=== PATIENT | female | born 2000 | race Caucasian/White ===

== ENCOUNTER 2020-12-18 19:23 | Inpatient (IN) ==
[2020-12-18 19:53] LABS: Basophils # (auto) 0.01 K/uL (0-0.2); Basophils % (auto) 0.1 %; Eosinophils # (auto) 0.36 K/uL (0-0.5); Hematocrit (blood only) 40.5 % (37-47); Hemoglobin 14.1 g/dL (12.0-16.0); Immature Granulocytes # (auto) 0.05 K/uL (0.00-0.02); Immature Granulocytes % (auto) 0.4 %; Lymphocytes # (auto) 3.41 K/uL (1.2-3.4); Lymphocytes % (auto) 28.1 %; Mean Corpuscular Hemoglobin 31.8 pg (25-34); Mean Corpuscular Hgb Conc 34.8 g/dL (32-36); Mean Corpuscular Volume 91.2 fL (80-100); Mean Platelet Volume 9.2 fL (7.4-10.4); Monocytes # (auto) 0.95 K/uL (0.11-0.59); Monocytes % (auto) 7.8 %; Neutrophils # (auto) 7.37 K/uL (1.4-6.5); Neutrophils % (auto) 60.6 %; Platelet Count 373 K/uL (130-400); RDW Coefficient of Variation 12.6 % (11.5-14.5); RDW Standard Deviation 42.3 fL (36.4-46.3); Red Blood Count 4.44 M/uL (4.2-5.4); White Blood Count 12.15 K/uL (4.8-10.8)
[2020-12-18 20:10] LABS: Appearance Urine Clear (Clear); Bilirubin Urine Negative (Negative); Blood Urine Negative (Negative); Color Urine Yellow; Glucose Urine UA Negative (Negative); Ketones Urine Negative (Negative); Leukocyte Esterase Urine Negative (Negative); Nitrite Urine Negative (Negative); Protein Urine Negative (Negative); Specific Gravity Urine 1.009 (1.000-1.030); Urobilinogen Urine Negative (Negative); pH Urine 7.5 (4.5-7.5)
[2020-12-18 20:11] LABS: Pregnancy Test, Urine Negative (Negative)
[2020-12-18 20:12] LABS: BUN Creatinine Ratio 13.7 (10-20); Creatinine Clr Calc Pharmacy 135.9 ml/min; Est GFR (African American) 109.6; Est GFR (Non-African American) 94.6; Potassium 3.5 mmol/L (3.5-5.1)
[2020-12-18 20:22] LABS: Albumin Globulin Ratio 1.3 (0.9-2); Bilirubin,Total 0.3 mg/dl (0.2-1); Globulin 3.2 gm/dl (2.5-4.0); Thyroid Stimulating Hormone 0.855 uIu/ml (0.300-4.500); Total Protein 7.2 gm/dl (6.4-8.2)
[2020-12-18 20:30] LABS: Amphetamines+Metham, Urine Neg (Neg); Barbiturates, Urine Neg (Neg); Benzodiazepine, Urine Neg (Neg); Cocaine, Urine Neg (Neg); MDMA (Ecstacy), Urine Neg (Neg); Methadone, Urine Neg (Neg); Opiate, Urine Neg (Neg); Phencyclidine, Urine Neg (Neg)
[2020-12-18 20:40] LABS: Acetaminophen < 2 ug/ml (10-30)
[2020-12-18 20:41] LABS: Salicylate < 1.7 mg/dl (2.8-20)
[2020-12-18 20:52] LABS: Influenza A virus by PCR Negative (Neg); Influenza B virus by PCR Negative (Neg); RSV by PCR Negative (Neg); SARS CoV2 RNA(COVID-19) InHosp NEGATIVE (Negative)
[2020-12-18] MEDS ORDERED: hydrOXYzine HCl 25 MG TAB PO STA (21:28)
--- NOTE | 2020-12-18 21:32 | Emergency Department Note ---
History of Present Illness General Chief complaint: Mental Health Evaluation Stated complaint: SUICIDAL THOUGHTS Time Seen by Provider: 12/18/20 19:29 Source: patient Mode of arrival: ambulatory Limitations: no limitations History of Present Illness Provider complaint: depression, suicidal ideation Onset (ago): month(s) (Depression, sleeping) This pt is a 20 yo female who presents to the ED with c/o depression x several months with thoughts of self-harm and suicide. She states this has been present actually for many years, but during COVID the symptoms have ramped up. She has been apathetic to schoolwork and sleeping many hours. She was smoking marijuana last semester and now has transitioned to "medical marijuana" and vaping mostly. She occasionally will drink ETOH, about every 3 weeks. Pt is engaged to her female partner with whom she lives. She states she has not harmed herself because she would not want her fiance to see that. She denies "making plans" but states she has contemplated "drowning" herself and "overdosing" in an attempt to commit suicide. Home Medications Medication Instructions Recorded Confirmed Type No Known Home Medications 12/18/20 12/18/20 History Allergies Allergy/AdvReac Type Severity Reaction Status Date / Time No Known Allergies Allergy Unverified 12/18/20 19:39 Past Med/Surg History Medical History (Updated 12/18/20 @ 21:44 by Camelia Perez MD) Marijuana abuse Obesity (BMI 35.0-39.9 without comorbidity) Social History (Updated 12/18/20 @ 21:40 by Camelia Perez MD) Smoking Status: Current every day smoker Tobacco Type: E-cigarettes / Vaping marital status: Life Partner Current Living Situation: Significant Other current occupational status: student Feels Safe at Home: Yes Review of Systems See HPI for pertinent positives & negatives. and A total of 10 systems reviewed and were otherwise negative Physical Exam Vital Signs Vital Signs - 24 hr 12/18/20 19:25 12/18/20 21:20 Temperature 36.7 C Temperature Source Oral Pulse Rate 108 H Pulse Rate [Finger] 80 Respiratory Rate 18 18 Respiratory Effort / Characteristics Non-Labored Respiratory Depth Normal Respiratory Pattern Regular Blood Pressure [Left Arm] 135/78 Blood Pressure Mean [Left Arm] 97 Blood Pressure Position [Left Arm] Sitting Pulse Oximetry 99 98 Oxygen Delivery Method Room Air Room Air Sepsis Recent Fever Within 48 Hours No Sepsis New/Unexplained Change in Mental Status No Sepsis Action Taken by Nursing No Action Required Vital signs reviewed. General: Well-appearing 20 yo female, in no significant distress. HEENT: No scleral icterus, PERRLA, neck supple. Atraumatic. Cardiovascular: Regular rate and rhythm, no extra sounds. Pulmonary: Clear to auscultation bilaterally, normal work of breathing. Abdomen: Soft, obese, nontender, nondistended, positive bowel sounds. Musculoskeletal: Atraumatic, no peripheral edema. Neurologic: Patient awake alert and oriented x 3 Psych: Negative HI, Positive SI w plan Skin: Warm, dry, no rash Medical Decision Making Differential Diagnosis Mood disorder, infection, hypoglycemia, electrolyte abnormalities, cardiac sources, intracerebral event, toxicologic, trauma, neurologic, as well as other pathologies. Medical Records Attestation: I reviewed the patient's medical records. Home Medications Current Medication List: was personally reviewed by me Laboratory Data Attestation: I reviewed the patient's lab results. Result diagrams: 12/18/20 19:40 12/18/20 19:40 Lab Results 12/18/20 12/18/20 12/18/20 Range/Units 19:40 19:40 19:40 WBC 12.15 H (4.8-10.8) K/uL RBC 4.44 (4.2-5.4) M/uL Hgb 14.1 (12.0-16.0) g/dL Hct 40.5 (37-47) % MCV 91.2 (80-100) fL MCH 31.8 (25-34) pg MCHC 34.8 (32-36) g/dL RDW Std Deviation 42.3 (36.4-46.3) fL RDW Coeff of Rosa 12.6 (11.5-14.5) % Plt Count 373 (130-400) K/uL MPV 9.2 (7.4-10.4) fL Immature Gran % (Auto) 0.4 % Neut % (Auto) 60.6 % Lymph % (Auto) 28.1 % Faulkner % (Auto) 7.8 % Eos % (Auto) 3.0 % Baso % (Auto) 0.1 % Neut # (Auto) 7.37 H (1.4-6.5) K/uL Lymph # (Auto) 3.41 H (1.2-3.4) K/uL Faulkner # (Auto) 0.95 H (0.11-0.59) K/uL Eos # (Auto) 0.36 (0-0.5) K/uL Baso # (Auto) 0.01 (0-0.2) K/uL Immature Gran # (Auto) 0.05 H (0.00-0.02) K/uL Sodium 137 (136-145) mmol/L Potassium 3.5 (3.5-5.1) mmol/L Chloride 108 H (98-107) mmol/L Carbon Dioxide 26 (21-32) mmol/L Anion Gap 3.0 (3-11) BUN 12 (7-18) mg/dl Creatinine 0.88 (0.6-1.2) mg/dl Est Cr Clr Drug Dosing 135.9 ml/min Est GFR ( Amer) 109.6 Est GFR (Non-Af Amer) 94.6 BUN/Creatinine Ratio 13.7 (10-20) Glucose 91 (70-99) mg/dl Calcium 9.0 (8.5-10.1) mg/dl Total Bilirubin 0.3 (0.2-1) mg/dl AST 10 L (15-37) U/L ALT 20 (12-78) U/L Alkaline Phosphatase 53 (45-117) U/L Total Protein 7.2 (6.4-8.2) gm/dl Albumin 4.0 (3.4-5.0) gm/dl Globulin 3.2 (2.5-4.0) gm/dl Albumin/Globulin Ratio 1.3 (0.9-2) TSH 0.855 (0.300-4.500) uIu/ml Urine Color Urine Appearance (Clear) Urine pH (4.5-7.5) Ur Specific Bardolph (1.000-1.030) Urine Protein (Negative) Urine Glucose (UA) (Negative) Urine Ketones (Negative) Urine Blood (Negative) Urine Nitrite (Negative) Urine Bilirubin (Negative) Urine Urobilinogen (Negative) Ur Leukocyte Esterase (Negative) Urine Test (Negative) Salicylates < 1.7 L (2.8-20) mg/dl Urine Opiates Screen (Neg) Ur Methadone, Qual (Neg) Acetaminophen < 2 L (10-30) ug/ml Urine Barbiturates (Neg) Ur Phencyclidine (PCP) (Neg) U Amphetamin/Meth Scrn (Neg) MDMA (Ecstasy) Screen (Neg) U Benzodiazepines Scrn (Neg) Ur Cocaine Metabolite (Neg) U Marijuana (THC) Screen (Neg) Ethyl Alcohol mg/dL (0-3) mg/dl COVID-19 Eval Order SARS-CoV-2 (PCR) (Negative) Influenza Type A (PCR) (Neg) Influenza Type B (PCR) (Neg) RSV (RT-PCR) (Neg) 12/18/20 12/18/20 12/18/20 Range/Units 19:40 19:55 19:55 WBC (4.8-10.8) K/uL RBC (4.2-5.4) M/uL Hgb (12.0-16.0) g/dL Hct (37-47) % MCV (80-100) fL MCH (25-34) pg MCHC (32-36) g/dL RDW Std Deviation (36.4-46.3) fL RDW Coeff of Rosa (11.5-14.5) % Plt Count (130-400) K/uL MPV (7.4-10.4) fL Immature Gran % (Auto) % Neut % (Auto) % Lymph % (Auto) % Faulkner % (Auto) % Eos % (Auto) % Baso % (Auto) % Neut # (Auto) (1.4-6.5) K/uL Lymph # (Auto) (1.2-3.4) K/uL Faulkner # (Auto) (0.11-0.59) K/uL Eos # (Auto) (0-0.5) K/uL Baso # (Auto) (0-0.2) K/uL Immature Gran # (Auto) (0.00-0.02) K/uL Sodium (136-145) mmol/L Potassium (3.5-5.1) mmol/L Chloride (98-107) mmol/L Carbon Dioxide (21-32) mmol/L Anion Gap (3-11) BUN (7-18) mg/dl Creatinine (0.6-1.2) mg/dl Est Cr Clr Drug Dosing ml/min Est GFR ( Amer) Est GFR (Non-Af Amer) BUN/Creatinine Ratio (10-20) Glucose (70-99) mg/dl Calcium (8.5-10.1) mg/dl Total Bilirubin (0.2-1) mg/dl AST (15-37) U/L ALT (12-78) U/L Alkaline Phosphatase (45-117) U/L Total Protein (6.4-8.2) gm/dl Albumin (3.4-5.0) gm/dl Globulin (2.5-4.0) gm/dl Albumin/Globulin Ratio (0.9-2) TSH (0.300-4.500) uIu/ml Urine Color Urine Appearance (Clear) Urine pH (4.5-7.5) Ur Specific Bardolph (1.000-1.030) Urine Protein (Negative) Urine Glucose (UA) (Negative) Urine Ketones (Negative) Urine Blood (Negative) Urine Nitrite (Negative) Urine Bilirubin (Negative) Urine Urobilinogen (Negative) Ur Leukocyte Esterase (Negative) Urine Test (Negative) Salicylates (2.8-20) mg/dl Urine Opiates Screen (Neg) Ur Methadone, Qual (Neg) Acetaminophen (10-30) ug/ml Urine Barbiturates (Neg) Ur Phencyclidine (PCP) (Neg) U Amphetamin/Meth Scrn (Neg) MDMA (Ecstasy) Screen (Neg) U Benzodiazepines Scrn (Neg) Ur Cocaine Metabolite (Neg) U Marijuana (THC) Screen (Neg) Ethyl Alcohol mg/dL < 3.0 (0-3) mg/dl COVID-19 Eval Order [facility]sv at [facility] SARS-CoV-2 (PCR) NEGATIVE (Negative) Influenza Type A (PCR) Negative (Neg) Influenza Type B (PCR) Negative (Neg) RSV (RT-PCR) Negative (Neg) 12/18/20 12/18/20 12/18/20 Range/Units 20:00 20:00 20:00 WBC (4.8-10.8) K/uL RBC (4.2-5.4) M/uL Hgb (12.0-16.0) g/dL Hct (37-47) % MCV (80-100) fL MCH (25-34) pg MCHC (32-36) g/dL RDW Std Deviation (36.4-46.3) fL RDW Coeff of Rosa (11.5-14.5) % Plt Count (130-400) K/uL MPV (7.4-10.4) fL Immature Gran % (Auto) % Neut % (Auto) % Lymph % (Auto) % Faulkner % (Auto) % Eos % (Auto) % Baso % (Auto) % Neut # (Auto) (1.4-6.5) K/uL Lymph # (Auto) (1.2-3.4) K/uL Faulkner # (Auto) (0.11-0.59) K/uL Eos # (Auto) (0-0.5) K/uL Baso # (Auto) (0-0.2) K/uL Immature Gran # (Auto) (0.00-0.02) K/uL Sodium (136-145) mmol/L Potassium (3.5-5.1) mmol/L Chloride (98-107) mmol/L Carbon Dioxide (21-32) mmol/L Anion Gap (3-11) BUN (7-18) mg/dl Creatinine (0.6-1.2) mg/dl Est Cr Clr Drug Dosing ml/min Est GFR ( Amer) Est GFR (Non-Af Amer) BUN/Creatinine Ratio (10-20) Glucose (70-99) mg/dl Calcium (8.5-10.1) mg/dl Total Bilirubin (0.2-1) mg/dl AST (15-37) U/L ALT (12-78) U/L Alkaline Phosphatase (45-117) U/L Total Protein (6.4-8.2) gm/dl Albumin (3.4-5.0) gm/dl Globulin (2.5-4.0) gm/dl Albumin/Globulin Ratio (0.9-2) TSH (0.300-4.500) uIu/ml Urine Color Yellow Urine Appearance Clear (Clear) Urine pH 7.5 (4.5-7.5) Ur Specific Bardolph 1.009 (1.000-1.030) Urine Protein Negative (Negative) Urine Glucose (UA) Negative (Negative) Urine Ketones Negative (Negative) Urine Blood Negative (Negative) Urine Nitrite Negative (Negative) Urine Bilirubin Negative (Negative) Urine Urobilinogen Negative (Negative) Ur Leukocyte Esterase Negative (Negative) Urine Test Negative (Negative) Salicylates (2.8-20) mg/dl Urine Opiates Screen Neg (Neg) Ur Methadone, Qual Neg (Neg) Acetaminophen (10-30) ug/ml Urine Barbiturates Neg (Neg) Ur Phencyclidine (PCP) Neg (Neg) U Amphetamin/Meth Scrn Neg (Neg) MDMA (Ecstasy) Screen Neg (Neg) U Benzodiazepines Scrn Neg (Neg) Ur Cocaine Metabolite Neg (Neg) U Marijuana (THC) Screen Pos H (Neg) Ethyl Alcohol mg/dL (0-3) mg/dl COVID-19 Eval Order SARS-CoV-2 (PCR) (Negative) Influenza Type A (PCR) (Neg) Influenza Type B (PCR) (Neg) RSV (RT-PCR) (Neg) MDM Narrative This pt was evaluated and appeared to be in no distress. Pt was medically cleared and referred to the case technician. Pt was referred to for inpatient psychiatric care on a voluntary basis and accepted. Impression & Plan Suicidal ideation, Marijuana abuse, Depression Discharge Plan Visit Data Chief Complaint: Mental Health Evaluation Stated Complaint: SUICIDAL THOUGHTS ED Provider: Camelia Perez Discharge Problem: Suicidal ideation, Marijuana abuse, Depression Forms Stand Alone Forms: [facility], Suicide Prevention Resources Prescriptions Prescriptions: No Action No Known Home Medications RF: 0 Discharge Problem: Depression Qualifiers: Depression Type: unspecified Qualified Code(s): F32.9 - Major depressive disorder, single episode, unspecified
[2020-12-18] MEDS ORDERED: BISMUTH SUBSALICYLATE LIQD 236 ML PO PRN (22:30)
[2020-12-18] MEDS ORDERED: SODIUM CHLORIDE 0.65% NA SOLN 45 ML (OCEAN) PRN (22:30)
[2020-12-18] MEDS ORDERED: MAGNESIUM HYDROXIDE SUSP 30 ML UDC PO PRN (22:30)
[2020-12-18] MEDS ORDERED: ALUMINUM/MAGNESIUM SUSP 30 ML UDC PO PRN (22:30)
[2020-12-18] MEDS ORDERED: ACETAMINOPHEN 325 MG TAB PO PRN (22:30)
[2020-12-18] MEDS ORDERED: hydrOXYzine HCl 25 MG TAB PO PRN (22:30)
--- NOTE | 2020-12-19 09:33 | History & Physical ---
Date of Service December 19, 2020 Impression / Recommendations Impression 20 yo female with history of anxiety and depression, presented to ED with SI with plan in the context of escalating stress of school and with wedding planning. (1) Depression: The patient was admitted to the [facility] ([facility] mental health unit) on q15 min checks (behavioral with suicide precautions) for safety. The patient will participate in group, recreational, and milieu therapies and will be offered additional individual and family sessions as clinically appropriate. Risks/benefits/alternatives reviewed re: antidepressants for the treatment of depression and/or anxiety. Discussion included but was not limited to FDA warnings re: suicidality in adolescents and young adults. The patient wants to avoid antidepressant given past experience. Depression Type: unspecified Qualified Code(s): F32.9 - Major depressive disorder, single episode, unspecified (2) Social anxiety disorder: with performance anxiety component. She agreed to a trial of Buspar 5 mg po BID to start (am and afternoon). Discussion included but was not limited to risks/benefits/alternative treatments. 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 Chief Complaint "a lot of stress has been building up". History of Present Illness Anjali reports several year history of primarily anxiety, can generally cope until "COVID happened", now harder to motivate self to complete coursework and attend in person classes. She has a harder time being around people and reports some avoidance of tasks and anxiety about presenting in music composition classes. "Will I have enough?", "Will it be good enough?". The stress causes her to oversleep and overeat. She is engaged and looking forward to wedding in April, but complicated as her extended family do not approve of beltre weddings (partner is female) and have even banned a cousin from taking part in the wedding democrat, even going as far as to remove financial support for college. Mother is supportive though and in fact the couple lived with her when COVID hit. The patient has had thoughts to harm self or cut before but hasn't acted on the latter for some time. Thoughts in past 2 weeks have been more persistent and include thoughts to OD or drown self. The patient doesn't have access to any prescription medications. She added that trigger was her professor and advisor told her she couldn't catch up and her perception was there would be no accommodations. She denies any history of manic symptoms and any MJ use is significantly decreased from previously. She will drink socially and that is main reason she stopped Zoloft trial January 2020 after less than 1 month as she drank and had a negative reaction (intensified ETOH) and "not going to do that again". She is more interested in medication for anxiety and possible evaluation for ADHD. She has anxiety about work completion that makes it hard to focus but is concerned as multiple family members have been dx or tested and wonders if she may have it. Reviewed importance of treating anxiety and depression first, exploring school accommodations, and any testing would be as outpatient. Past Psychiatric History Current Psychiatric Diagnosis: Anxiety Previous Psych Admissions: denied Do You Have Access To A Gun?: No History of Previous Suicide Attempt: No Past Medication Trials: Zoloft Allergies Allergy/AdvReac Type Severity Reaction Status Date / Time No Known Allergies Allergy Unverified 12/18/20 19:39 Home Medications Medication Instructions Recorded Confirmed Type No Known Home Medications 12/18/20 12/18/20 History Family History Family History of: Anxiety Family Mental Health History Comment: ADHD - reports family is hinduism and doesn't believe in taking medications Alcohol History Hx of Alcohol Use Over the Past 12 Months: Yes (Occasional 1x/month) AUDIT Total Score: 3 Smoking Use Have You Smoked or Used Tobacco Products in the Last 30 Days: Yes tobacco type: cigarettes Smoking Status: Current every day smoker Smoking packs per day: 0.5 Substance History Hx of Prescription Med Misuse Over the Past 12 Months: No Hx of Over the Counter Med Misuse Over the Past 12 Months: No Hx of Inhalent Misuse Over the Past 12 Months: No Hx of Organic Substance Use Over the Past 12 Months: Yes (medical marijuana - occasionally, mainly CBD) Hx of Illegal Substances/Street Drug Use Over Past 12 Months: No Problems as a Result of Past Substance Use: Other Problems as a Result of Past Substance Use Comments: Pt felt medical marijuana use was hindering her motivation Personal History Living Arrangements: Apartment Living Arrangements Comments: with miguel (female) Childhood: [place], 2nd oldest of 4 kids Highest Grade Completed: High School Graduate and Some College (music composition, plays flute and piano) Employment Status: Student Marital Status: Single (engaged) Number Of Children: none Beliefs That Will Affect Care: None Current Legal Problems: No Hx Legal Problems: No Hx Traumatic Life Events: No Patient History Medical History Marijuana abuse Obesity (BMI 35.0-39.9 without comorbidity) Social History (Updated 12/18/20 @ 21:40 by Camelia Perez MD) Smoking Status: Current every day smoker Tobacco Type: E-cigarettes / Vaping Preferred Language: Swedish Communication Ability: Effective Agent Based Modeler Required: No Beliefs That Will Affect Care: None marital status: Life Partner Current Living Situation: Significant Other current occupational status: student Feels Safe at Home: Yes Assistive Devices: None Review of Systems Review of Systems: All systems reviewed & are unremarkable except as noted in HPI & below Physical Exam Psychiatric: Orientation: alert and oriented x 3 Apperance: appropriately groomed Eye Contact: + fair eye contact Motor Behavior: steady gait and station Speech: normal rate/rhythm/volume of speech Mood: + depressed mood Thought Process: goal directed thought process Thought Content: reality based without delusions Suicidal Thoughts: + reports suicidal thoughts (OD or drown self, no intent on unit. ) Homicidal Thoughts: denies homicidal thoughts Hallucinations: no auditory hallucinations and no visual hallucinations Cognition: attention grossly intact and language grossly intact Estimated Intelligence: consistent with education level Insight: + limited insight Judgement: + limited judgement Vital Signs (Past 24 Hours): Last Vital Signs Temp 37 C 12/18/20 22:31 Pulse 85 12/18/20 22:31 Resp 16 12/18/20 22:31 BP 119/78 12/18/20 22:31 Pulse Ox 99 12/18/20 22:31 Exam Statement: A physical exam was performed in the ED by Dr. Perez for the purposes of medical clearance. I accept that physical as correct and adequate for the purposes of the inpatient physical exam. Results & Data ([facility]) Laboratory Results Laboratory Results - last 24 hr 12/18/20 12/18/20 12/18/20 19:40 19:40 19:40 WBC 12.15 H RBC 4.44 Hgb 14.1 Hct 40.5 MCV 91.2 MCH 31.8 MCHC 34.8 RDW Std Deviation 42.3 RDW Coeff of Rosa 12.6 Plt Count 373 MPV 9.2 Immature Gran % (Auto) 0.4 Neut % (Auto) 60.6 Lymph % (Auto) 28.1 [place] % (Auto) 7.8 Eos % (Auto) 3.0 Baso % (Auto) 0.1 Neut # (Auto) 7.37 H Lymph # (Auto) 3.41 H [place] # (Auto) 0.95 H Eos # (Auto) 0.36 Baso # (Auto) 0.01 Immature Gran # (Auto) 0.05 H Sodium 137 Potassium 3.5 Chloride 108 H Carbon Dioxide 26 Anion Gap 3.0 BUN 12 Creatinine 0.88 Est Cr Clr Drug Dosing 135.9 Est GFR ( Amer) 109.6 Est GFR (Non-Af Amer) 94.6 BUN/Creatinine Ratio 13.7 Glucose 91 Calcium 9.0 Total Bilirubin 0.3 AST 10 L ALT 20 Alkaline Phosphatase 53 Total Protein 7.2 Albumin 4.0 Globulin 3.2 Albumin/Globulin Ratio 1.3 TSH 0.855 Urine Color Urine Appearance Urine pH Ur Specific [place] Urine Protein Urine Glucose (UA) Urine Ketones Urine Blood Urine Nitrite Urine Bilirubin Urine Urobilinogen Ur Leukocyte Esterase Urine Test Salicylates < 1.7 L Urine Opiates Screen Ur Methadone, Qual Acetaminophen < 2 L Urine Barbiturates Ur Phencyclidine (PCP) U Amphetamin/Meth Scrn MDMA (Ecstasy) Screen U Benzodiazepines Scrn Ur Cocaine Metabolite U Marijuana (THC) Screen U Marijuana THC Carboxy Drug Screen Comment Ethyl Alcohol mg/dL COVID-19 Eval Order SARS-CoV-2 (PCR) Influenza Type A (PCR) Influenza Type B (PCR) RSV (RT-PCR) 12/18/20 12/18/20 12/18/20 19:40 19:55 19:55 WBC RBC Hgb Hct MCV MCH MCHC RDW Std Deviation RDW Coeff of Rosa Plt Count MPV Immature Gran % (Auto) Neut % (Auto) Lymph % (Auto) [place] % (Auto) Eos % (Auto) Baso % (Auto) Neut # (Auto) Lymph # (Auto) [place] # (Auto) Eos # (Auto) Baso # (Auto) Immature Gran # (Auto) Sodium Potassium Chloride Carbon Dioxide Anion Gap BUN Creatinine Est Cr Clr Drug Dosing Est GFR ( Amer) Est GFR (Non-Af Amer) BUN/Creatinine Ratio Glucose Calcium Total Bilirubin AST ALT Alkaline Phosphatase Total Protein Albumin Globulin Albumin/Globulin Ratio TSH Urine Color Urine Appearance Urine pH Ur Specific [place] Urine Protein Urine Glucose (UA) Urine Ketones Urine Blood Urine Nitrite Urine Bilirubin Urine Urobilinogen Ur Leukocyte Esterase Urine Test Salicylates Urine Opiates Screen Ur Methadone, Qual Acetaminophen Urine Barbiturates Ur Phencyclidine (PCP) U Amphetamin/Meth Scrn MDMA (Ecstasy) Screen U Benzodiazepines Scrn Ur Cocaine Metabolite U Marijuana (THC) Screen U Marijuana THC Carboxy Drug Screen Comment Ethyl Alcohol mg/dL < 3.0 COVID-19 Eval Order CovFluRsv at [facility] SARS-CoV-2 (PCR) NEGATIVE Influenza Type A (PCR) Negative Influenza Type B (PCR) Negative RSV (RT-PCR) Negative 12/18/20 12/18/20 12/18/20 20:00 20:00 20:00 WBC RBC Hgb Hct MCV MCH MCHC RDW Std Deviation RDW Coeff of Rosa Plt Count MPV Immature Gran % (Auto) Neut % (Auto) Lymph % (Auto) [place] % (Auto) Eos % (Auto) Baso % (Auto) Neut # (Auto) Lymph # (Auto) [place] # (Auto) Eos # (Auto) Baso # (Auto) Immature Gran # (Auto) Sodium Potassium Chloride Carbon Dioxide Anion Gap BUN Creatinine Est Cr Clr Drug Dosing Est GFR ( Amer) Est GFR (Non-Af Amer) BUN/Creatinine Ratio Glucose Calcium Total Bilirubin AST ALT Alkaline Phosphatase Total Protein Albumin Globulin Albumin/Globulin Ratio TSH Urine Color Yellow Urine Appearance Clear Urine pH 7.5 Ur Specific [place] 1.009 Urine Protein Negative Urine Glucose (UA) Negative Urine Ketones Negative Urine Blood Negative Urine Nitrite Negative Urine Bilirubin Negative Urine Urobilinogen Negative Ur Leukocyte Esterase Negative Urine Test Negative Salicylates Urine Opiates Screen Neg Ur Methadone, Qual Neg Acetaminophen Urine Barbiturates Neg Ur Phencyclidine (PCP) Neg U Amphetamin/Meth Scrn Neg MDMA (Ecstasy) Screen Neg U Benzodiazepines Scrn Neg Ur Cocaine Metabolite Neg U Marijuana (THC) Screen Pos H U Marijuana THC Carboxy Drug Screen Comment Ethyl Alcohol mg/dL COVID-19 Eval Order SARS-CoV-2 (PCR) Influenza Type A (PCR) Influenza Type B (PCR) RSV (RT-PCR) 12/18/20 20:00 WBC RBC Hgb Hct MCV MCH MCHC RDW Std Deviation RDW Coeff of Rosa Plt Count MPV Immature Gran % (Auto) Neut % (Auto) Lymph % (Auto) [place] % (Auto) Eos % (Auto) Baso % (Auto) Neut # (Auto) Lymph # (Auto) [place] # (Auto) Eos # (Auto) Baso # (Auto) Immature Gran # (Auto) Sodium Potassium Chloride Carbon Dioxide Anion Gap BUN Creatinine Est Cr Clr Drug Dosing Est GFR ( Amer) Est GFR (Non-Af Amer) BUN/Creatinine Ratio Glucose Calcium Total Bilirubin AST ALT Alkaline Phosphatase Total Protein Albumin Globulin Albumin/Globulin Ratio TSH Urine Color Urine Appearance Urine pH Ur Specific [place] Urine Protein Urine Glucose (UA) Urine Ketones Urine Blood Urine Nitrite Urine Bilirubin Urine Urobilinogen Ur Leukocyte Esterase Urine Test Salicylates Urine Opiates Screen Ur Methadone, Qual Acetaminophen Urine Barbiturates Ur Phencyclidine (PCP) U Amphetamin/Meth Scrn MDMA (Ecstasy) Screen U Benzodiazepines Scrn Ur Cocaine Metabolite U Marijuana (THC) Screen U Marijuana THC Carboxy Pending Drug Screen Comment Pending Ethyl Alcohol mg/dL COVID-19 Eval Order SARS-CoV-2 (PCR) Influenza Type A (PCR) Influenza Type B (PCR) RSV (RT-PCR) Current Inpatient Medications Current Inpatient Medications: Current Inpatient Medications Acetaminophen (Acetaminophen 325 Mg Tab) 650 mg PO Q4H PRN PRN Reason: Headache or Minor Fever Stop: 01/17/21 22:29 Al Hydrox/Mg Hydrox/Simethicone (Aluminum/Magnesium Susp 30 Ml Udc) 30 ml PO Q4H PRN PRN Reason: GI Upset Stop: 01/17/21 22:29 Bismuth Subsalicylate (Bismuth Subsalicylate Liqd 236 Ml) 15 ml PO PRN PRN PRN Reason: Loose Stool Stop: 01/17/21 22:29 Hydroxyzine HCl (Hydroxyzine Hcl 25 Mg Tab) 50 mg PO HSZ PRN PRN Reason: Insomnia Stop: 01/17/21 22:29 Hydroxyzine HCl (Hydroxyzine Hcl 25 Mg Tab) 25 mg PO Q4H PRN PRN Reason: Anxiety Stop: 01/17/21 22:29 Magnesium Hydroxide (Magnesium Hydroxide Susp 30 Ml Udc) 30 ml PO DAILY PRN PRN Reason: Constipation Stop: 01/17/21 22:29 Sodium Chloride (Sodium Chloride 0.65% Na Soln 45 Ml ([place])) 1 - 2 sprays NA PRN PRN PRN Reason: Nasal Dryness/Congestion Stop: 01/17/21 22:29
[2020-12-19] MEDS ORDERED: busPIRone 5 MG TAB PO ONE ×2 (11:18→19:00)
[2020-12-19] MEDS: NICOTINE POLACRILEX 2 MG GUM MT PRN (18:40)
[2020-12-19] MEDS: hydrOXYzine HCl 25 MG TAB PO PRN (21:17)
[2020-12-20] MEDS ORDERED: busPIRone 5 MG TAB PO SCH (09:00)
[2020-12-20] MEDS: NICOTINE POLACRILEX 2 MG GUM MT PRN (11:26)
--- NOTE | 2020-12-20 15:34 | Psychiatric Progress Note ---
Date of Service December 20, 2020 Impression / Recommendations Impression 20 yo female with history of anxiety and depression, presented to ED with SI with plan in the context of escalating stress of school and with wedding planning. Started on Buspar with some benefit. (1) Depression: 12/19--The patient was [facility] to the [facility] on q15 min checks (behavioral with suicide precautions) for safety. The patient will participate in group, recreational, and milieu therapies and will be offered additional individual and family sessions as clinically appropriate. Risks/benefits/alternatives reviewed re: antidepressants for the treatment of depression and/or anxiety. Discussion included but was not limited to FDA warnings re: suicidality in adolescents and young adults. The patient wants to avoid antidepressant given past experience. (2) Social anxiety disorder: 12/19--with performance anxiety component. She agreed to a trial of Buspar 5 mg po BID to start (am and afternoon). Discussion included but was not limited to risks/benefits/alternative treatments. 12/20--increase Buspar to 10 mg BID. 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 Chief Complaint "yeah I felt less tightness in my chest yesterday". Review of Systems Sleep Information Total Hours of Sleep: 6.5 Sleep Comments: pt given vistaril per rn. pt on q-15 minute checks Meal Information Percent Meal Consumed - Breakfast: 100 Percent Meal Consumed - Lunch: 75 Percent Meal Consumed - Dinner: 100 Subjective Subjective Patient was seen & assessed and interval progress reviewed with treatment team. meeting with miguel this pm. benefits from 1-on-1 with staff. Started Buspar, told staff resistance to antidepressant was sexual side effects. She adds that although not suicidal here, unsure how she will cope outside of hospital as nothing has changed with regards to her classes. Physical Exam Psychiatric Orientation: alert and oriented x 3 Apperance: appropriately groomed Eye Contact: + fair eye contact Motor Behavior: steady gait and station Speech: normal rate/rhythm/volume of speech Mood: + depressed mood Thought Process: goal directed thought process Thought Content: reality based without delusions Suicidal Thoughts: denies suicidal thoughts Homicidal Thoughts: denies homicidal thoughts Hallucinations: no auditory hallucinations and no visual hallucinations Cognition: attention grossly intact and language grossly intact Estimated Intelligence: consistent with education level Insight: + limited insight Judgement: + limited judgement Vital Signs (Past 24 Hours) Last Vital Signs Temp 36.7 C 12/20/20 06:34 Pulse 64 12/20/20 06:35 Resp 16 12/20/20 06:34 BP 116/63 12/20/20 06:35 Pulse Ox 99 12/18/20 22:31 Results & Data ([facility]) Current Inpatient Medications Current Inpatient Medications: Current Inpatient Medications Acetaminophen (Acetaminophen 325 Mg Tab) 650 mg PO Q4H PRN PRN Reason: Headache or Minor Fever Stop: 01/17/21 22:29 Al Hydrox/Mg Hydrox/Simethicone (Aluminum/Magnesium Susp 30 Ml Udc) 30 ml PO Q4H PRN PRN Reason: GI Upset Stop: 01/17/21 22:29 Bismuth Subsalicylate (Bismuth Subsalicylate Liqd 236 Ml) 15 ml PO PRN PRN PRN Reason: Loose Stool Stop: 01/17/21 22:29 Buspirone HCl (Buspirone 5 Mg Tab) 5 mg PO [id number] SILVANA Stop: 01/19/21 08:59 Last Admin: 12/20/20 08:36 Dose: 5 mg Documented by: Hydroxyzine HCl (Hydroxyzine Hcl 25 Mg Tab) 50 mg PO HSZ PRN PRN Reason: Insomnia Stop: 01/17/21 22:29 Last Admin: 12/19/20 21:17 Dose: 50 mg Documented by: Hydroxyzine HCl (Hydroxyzine Hcl 25 Mg Tab) 25 mg PO Q4H PRN PRN Reason: Anxiety Stop: 01/17/21 22:29 Magnesium Hydroxide (Magnesium Hydroxide Susp 30 Ml Udc) 30 ml PO DAILY PRN PRN Reason: Constipation Stop: 01/17/21 22:29 Nicotine Polacrilex (Nicotine Polacrilex 2 Mg Gum) 1 piece MT PRN PRN PRN Reason: nicotine cravings Stop: 01/18/21 17:59 Last Admin: 12/20/20 11:26 Dose: 1 piece Documented by: Sodium Chloride (Sodium Chloride 0.65% Na Soln 45 Ml ([place])) 1 - 2 sprays NA PRN PRN PRN Reason: Nasal Dryness/Congestion Stop: 01/17/21 22:29 Mental Health & Subst Abuse Tx Chief Nuclear Medicine Technologist Name of Chief Nuclear Medicine Technologist: Student Care [employer] Advocacy Phone Number for Chief Nuclear Medicine Technologist: [phone] Case Management Appointment Comment: Will call you Post Discharge Appointments Primary Care Physician Name Of Family Doctor: [facility] Primary Care Provider Appointment Comment: [facility] Contact Information Discharge Discharge Address: [address] [place] [address], [place] [address] (1) Depression Depression Type: unspecified Qualified Code(s): F32.9 - Major depressive disorder, single episode, unspecified
[2020-12-20] MEDS: busPIRone 5 MG TAB PO SCH (16:54)
[2020-12-20] MEDS: hydrOXYzine HCl 25 MG TAB PO PRN (22:49)
--- NOTE | 2020-12-21 09:03 | Psychiatric Progress Note ---
Date of Service December 21, 2020 Impression / Recommendations Impression 20 yo female with history of anxiety and depression, presented to ED with SI with plan in the context of escalating stress of school and with wedding planning. Started on Buspar with some benefit. (1) Depression: 12/19--The patient was admitted to the [facility] ([facility] unit) on q15 min checks (behavioral with suicide precautions) for safety. The patient will participate in group, recreational, and milieu therapies and will be offered additional individual and family sessions as clinically appropriate. Risks/benefits/alternatives reviewed re: antidepressants for the treatment of depression and/or anxiety. Discussion included but was not limited to FDA warnings re: suicidality in adolescents and young adults. The patient wants to avoid antidepressant given past experience. 12/21 - Continue as above - patient reporting improvement in mood, denying SI today. - Positive family meeting with miguel yesterday - Awaiting confirmed appointments through [facility] for outpatient psychiatric treatment - Pt referred for coordination with [employer] [facility] [employer] [facility] post-discharge to assist with communication with the university (2) Social anxiety disorder: 12/19--with performance anxiety component. She agreed to a trial of Buspar 5 mg po BID to start (am and afternoon). Discussion included but was not limited to risks/benefits/alternative treatments. 12/20--increase Buspar to 10 mg BID. 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 Chief Complaint "I think my medicine has really been helping." Review of Systems Notes Constitutional: denied Cardiovascular: denied Respiratory: denied Gastrointestinal: denied Neurological: denied Psychiatric: denies symptoms other than stated above Total of at least 10 systems reviewed, pertinent positives as above and in HPI. Sleep Information Total Hours of Sleep: 6.5 Sleep Comments: pt given vistaril per rn. pt on q-15 minute checks Meal Information Percent Meal Consumed - Breakfast: 100 Percent Meal Consumed - Lunch: 75 Percent Meal Consumed - Dinner: 95 Subjective Subjective Patient was seen & assessed and interval progress reviewed with nursing and social work. Staff report the patient has been attending group programming and responding well to treatment. She had a support meeting yesterday with her fijw, which reportedly went well. She rated her mood a 6/10 and "tired" last evening. Pt was seen today to assess progress since admission. Pt reports "I think my medicine has really been helping." Pt states she feels her anxiety and stress has been reduce and reports improvement in chest tightness. Pt states she has been focusing on being more aware of her thoughts, specifically the negative self-talk she had been experiencing. Pt states that prior to her admission her thoughts were generally 'you didn't do this well, it's ok, just kill yourself.' She now states that these thoughts are not occurring and she is learning to be more forgiving of herself. Pt also admits that she is taking more time to evaluate why she has particularly thoughts and where they may be stemming from. Pt denies SI and states that her mood has improved since admission. She reports her family meeting with her fijw was positive, and they worked to identify ways to expand the patient's support network. Pt reports feeling as though she is meeting her treatment goals. She was updated on [facility] referral and need for confirmed appointment times and was encouraged to begin working on her written safety plan, reaching out to staff for assistance. Pt denied other needs or concerns today. Physical Exam Psychiatric Orientation: alert, oriented x 3 and cooperative Apperance: appropriately dressed, appropriately groomed and appeared stated age Pt is casually dressed in a tie-dye sweater and sweat pants. Hair is an aqua blue/green color. Level of hygiene appears adequate. Eye Contact: good eye contact Motor Behavior: steady gait and station and no abnormal motor movements Speech: normal rate/rhythm/volume of speech Affect: + anxious affect (mildly so) Mood: + anxious mood (but admits "less anxious"); no depressed mood Thought Process: goal directed thought process, clear/coherent thought process and thought association intact Thought Content: reality based without delusions; no hopelessness and no worthlessness Suicidal Thoughts: denies suicidal thoughts and denies suicidal intent Homicidal Thoughts: denies homicidal thoughts Hallucinations: no auditory hallucinations and no visual hallucinations Cognition: recent memory grossly intact, attention grossly intact and language grossly intact Estimated Intelligence: consistent with education level Insight: + fair insight Judgement: + fair judgement Vital Signs (Past 24 Hours) Last Vital Signs Temp 36.6 C 12/21/20 06:44 Pulse 71 12/21/20 06:45 Resp 16 12/21/20 06:44 BP 115/80 12/21/20 06:45 Pulse Ox 99 12/18/20 22:31 Results & Data ([facility]) Current Inpatient Medications Current Inpatient Medications: Current Inpatient Medications Acetaminophen (Acetaminophen 325 Mg Tab) 650 mg PO Q4H PRN PRN Reason: Headache or Minor Fever Stop: 01/17/21 22:29 Al Hydrox/Mg Hydrox/Simethicone (Aluminum/Magnesium Susp 30 Ml Udc) 30 ml PO Q4H PRN PRN Reason: GI Upset Stop: 01/17/21 22:29 Bismuth Subsalicylate (Bismuth Subsalicylate Liqd 236 Ml) 15 ml PO PRN PRN PRN Reason: Loose Stool Stop: 01/17/21 22:29 Buspirone HCl (Buspirone 5 Mg Tab) 10 mg PO [id number] SILVANA Stop: 01/19/21 16:59 Last Admin: 12/20/20 16:54 Dose: 10 mg Documented by: Hydroxyzine HCl (Hydroxyzine Hcl 25 Mg Tab) 50 mg PO HSZ PRN PRN Reason: Insomnia Stop: 01/17/21 22:29 Last Admin: 12/20/20 22:49 Dose: 50 mg Documented by: Hydroxyzine HCl (Hydroxyzine Hcl 25 Mg Tab) 25 mg PO Q4H PRN PRN Reason: Anxiety Stop: 01/17/21 22:29 Magnesium Hydroxide (Magnesium Hydroxide Susp 30 Ml Udc) 30 ml PO DAILY PRN PRN Reason: Constipation Stop: 01/17/21 22:29 Nicotine Polacrilex (Nicotine Polacrilex 2 Mg Gum) 1 piece MT PRN PRN PRN Reason: nicotine cravings Stop: 01/18/21 17:59 Last Admin: 12/20/20 11:26 Dose: 1 piece Documented by: Sodium Chloride (Sodium Chloride 0.65% Na Soln 45 Ml ([place])) 1 - 2 sprays NA PRN PRN PRN Reason: Nasal Dryness/Congestion Stop: 01/17/21 22:29 Mental Health & Subst Abuse Tx Contin[employer] Of Care Manager Name of Continuum Of Care Manager: [employer] [facility] [employer] [facility] Phone Number for Contin[employer] Of Care Manager: [phone] Case Management Appointment Comment: Will call you Post Discharge Appointments Primary Care Physician Name Of Family Doctor: [facility] Primary Care Provider Appointment Comment: [facility] Other #1: Name of Aftercare Appointment: Potential ADHD Testing: [facility] Phone Number of Aftercare Appointment: Aftercare Appointment Comment: [address], [place] [address] Contact Information Discharge Discharge Address: [address], [facility], [place] [address] (1) Depression Depression Type: unspecified Qualified Code(s): F32.9 - Major depressive disorder, single episode, unspecified
[2020-12-21] MEDS: busPIRone 5 MG TAB PO SCH ×2 (09:10→17:21)
[2020-12-22 08:19] LABS: Marijuana Quant, GCMS Urine 133 ng/mL (<5)
[2020-12-22] MEDS: busPIRone 5 MG TAB PO SCH (09:04)
--- NOTE | 2020-12-22 10:41 | Discharge Summary ---
Date of Service December 22, 2020 History of Present Illness Antionette reports several year history of primarily anxiety, can generally cope until "COVID happened", now harder to motivate self to complete coursework and attend in person classes. She has a harder time being around people and reports some avoidance of tasks and anxiety about presenting in music composition classes. "Will I have enough?", "Will it be good enough?". The stress causes her to oversleep and overeat. She is engaged and looking forward to wedding in April, but complicated as her extended family do not approve of beltre weddings (partner is female) and have even banned a cousin from taking part in the wedding libertarian, even going as far as to remove financial support for college. Mother is supportive though and in fact the couple lived with her when COVID hit. The patient has had thoughts to harm self or cut before but hasn't acted on the latter for some time. Thoughts in past 2 weeks have been more persistent and include thoughts to OD or drown self. The patient doesn't have access to any prescription medications. She added that trigger was her professor and advisor told her she couldn't catch up and her perception was there would be no accommodations. She denies any history of manic symptoms and any MJ use is significantly decreased from previously. She will drink socially and that is main reason she stopped Zoloft trial January 2020 after less than 1 month as she drank and had a negative reaction (intensified ETOH) and "not going to do that again". She is more interested in medication for anxiety and possible evaluation for ADHD. She has anxiety about work completion that makes it hard to focus but is concerned as multiple family members have been dx or tested and wonders if she may have it. Reviewed importance of treating anxiety and depression first, exploring school accommodations, and any testing would be as outpatient. Physical Exam Psychiatric Orientation: alert, oriented x 3 and cooperative (and pleasant) Apperance: appropriately dressed, appropriately groomed and appeared stated age Eye Contact: good eye contact Motor Behavior: steady gait and station and no abnormal motor movements Speech: normal rate/rhythm/volume of speech Affect: euthymic affect Mood: no depressed mood and no anxious mood (aside from mild anticipatory anxiety regarding discharge) Thought Process: goal directed thought process, clear/coherent thought process and thought association intact Thought Content: reality based without delusions; no hopelessness and no worthlessness Suicidal Thoughts: denies suicidal thoughts, denies suicidal plan and denies suicidal intent Homicidal Thoughts: denies homicidal thoughts Hallucinations: no auditory hallucinations and no visual hallucinations Cognition: recent memory grossly intact, attention grossly intact and language grossly intact Estimated Intelligence: consistent with education level Insight: + fair insight Judgement: good judgement Vital Signs (Past 24 Hours) Last Vital Signs Temp 36.4 C L 12/22/20 06:50 Pulse 72 12/22/20 06:51 Resp 16 12/22/20 06:50 BP 111/72 12/22/20 06:51 Pulse Ox 99 12/18/20 22:31 Principal Diagnosis - Major depressive disorder - Social anxiety disorder - Marijuana abuse Psychiatric Data See "Hospital Course" section for Daily Care Summary 20-year-old female admitted voluntarily for inpatient psychiatric treatment on 12/18/20 after presenting to the ED with reports of worsening anxiety, depression, and SI in the context of increasing school stress and wedding planning. Pt states that she struggles with desire to achieve perfection. Pt also has been struggling with lack of support from her extended family regarding beltre wedding (her partner is female), which has been difficult. Pt declined to consider a trial of an SSRI, but did request medication that may target her anxiety. Buspirone was initiated and patient was titrated to a a dose of 10mg BID without issues. She involved her fiance in a support meeting to discuss safety and discharge planning. Pt had admitted to improvement in mood and resolution of SI by the time of discharge. She was an active participant in group programming and was supportive of her peers. Pt was referred to [facility] for outpatient psychiatric treatment - they will be contacting her directly to schedule an intake appointment, but all necessary information for the referral was faxed. Based on review of patient's case and their current presentation, risk of harm to self or others is no longer perceived to be acute. Management of symptoms on an outpatient basis seems the most appropriate and least restrictive setting. Pt seems appropriate for discharge with recommendation for consistent follow-up with outpatient psychiatric prescriber and therapist. Pt verbalized understanding of discharge plan reviewed and is agreeable with plan to be discharged home with her fiance today. Day of Discharge Assessment Patient's case was reviewed and discussed during treatment team. Staff report the patient continues to be engaged with group programming and is reporting improved mood. Pt rated her mood a 9/10 last evening and was hopeful for discharge today. Pt was seen today to assess readiness for discharge. Pt states she is doing well. She reports groups yesterday were very helpful, specifically a group on stress management as patient felt it helped her gain a lot of insight into her recent negative thought patterns and learn to challenge them. Pt denies ongoing SI and reports mood overall is much improved. Pt denies concerns related to her current medication regimen. Pt did agree to discharge later this afternoon, with hopes we will have a secured appointment time at [facility] - however, all information for this referral has been faxed and appointment could be scheduled with patient directly if necessary. Pt reports feeling as though she has met her treatment goals and is requesting discharge today. ROS: Constitutional: denied Cardiovascular: denied Respiratory: denied Gastrointestinal: denied Neurological: denied Psychiatric: denies symptoms other than stated above Total of at least 10 systems reviewed, pertinent positives as above and in HPI. Transition of Care Transition Of Care Record: was reviewed with the patient Advance Directives Advance Directives Information Provided: Yes Advance Directives: No Mental Health Advance Directive: No Advance Directives on File: No Living Will: No Power of Media Traffic Manager: No Advance Directives Reason:: Declines as Mental Health Visit. Risk Factors Assessment Presenting risk factors reviewed on discharge. Precipitating stressors mitigated by: admission for inpatient psychiatric observation and treatment, initiation of medications to target presenting symptoms, attendance of therapeutic treatment groups, development of healthy and effective coping strategies, involvement of outpatient supports, completion of a safety plan, confirmation of extra medications being secured, confirmation of guns and weapons being secured, discussion regarding substance abuse and effects on mental health diagnoses, and education on diagnoses. Pt has demonstrated improvement in condition with regard to improve mood, resolution of SI, involvement of supports in discharge planning, and referral for outpatient psychiatric treatment. At this time, patient is requesting discharge and is no longer considered to be at acute risk of harm to herself or others. Pt will be discharged with recommendation for ongoing outpatient psychiatric treatment. 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[employer], PT) Stable Relationships: Yes Tobacco Cessation at Discharge Tobacco Cessation Medication Prescribed at Discharge: Offered & Prescribed Tobacco Cessation Outpatient Followup: Outpatient referral made to ([facility]) Total Time Total Time Spent: Greater Than 30 Minutes Total Time Includes: Examination of the patient, Discharge Planning, Medication Reconciliation and Communication with other providers Discharge Data Lab Results 12/18/20 12/18/20 12/18/20 19:40 19:40 19:40 WBC 12.15 H RBC 4.44 Hgb 14.1 Hct 40.5 MCV 91.2 MCH 31.8 MCHC 34.8 RDW Std Deviation 42.3 RDW Coeff of Rosa 12.6 Plt Count 373 MPV 9.2 Immature Gran % (Auto) 0.4 Neut % (Auto) 60.6 Lymph % (Auto) 28.1 [place] % (Auto) 7.8 Eos % (Auto) 3.0 Baso % (Auto) 0.1 Neut # (Auto) 7.37 H Lymph # (Auto) 3.41 H [place] # (Auto) 0.95 H Eos # (Auto) 0.36 Baso # (Auto) 0.01 Immature Gran # (Auto) 0.05 H Sodium 137 Potassium 3.5 Chloride 108 H Carbon Dioxide 26 Anion Gap 3.0 BUN 12 Creatinine 0.88 Est Cr Clr Drug Dosing 135.9 Est GFR ( Amer) 109.6 Est GFR (Non-Af Amer) 94.6 BUN/Creatinine Ratio 13.7 Glucose 91 Calcium 9.0 Total Bilirubin 0.3 AST 10 L ALT 20 Alkaline Phosphatase 53 Total Protein 7.2 Albumin 4.0 Globulin 3.2 Albumin/Globulin Ratio 1.3 TSH 0.855 Urine Color Urine Appearance Urine pH Ur Specific Adams Urine Protein Urine Glucose (UA) Urine Ketones Urine Blood Urine Nitrite Urine Bilirubin Urine Urobilinogen Ur Leukocyte Esterase Urine Test Salicylates < 1.7 L Urine Opiates Screen Ur Methadone, Qual Acetaminophen < 2 L Urine Barbiturates Ur Phencyclidine (PCP) U Amphetamin/Meth Scrn MDMA (Ecstasy) Screen U Benzodiazepines Scrn Ur Cocaine Metabolite U Marijuana (THC) Screen U Marijuana THC Carboxy Drug Screen Comment Ethyl Alcohol mg/dL COVID-19 Eval Order SARS-CoV-2 (PCR) Influenza Type A (PCR) Influenza Type B (PCR) RSV (RT-PCR) 12/18/20 12/18/20 12/18/20 19:40 19:55 19:55 WBC RBC Hgb Hct MCV MCH MCHC RDW Std Deviation RDW Coeff of Rosa Plt Count MPV Immature Gran % (Auto) Neut % (Auto) Lymph % (Auto) [place] % (Auto) Eos % (Auto) Baso % (Auto) Neut # (Auto) Lymph # (Auto) [place] # (Auto) Eos # (Auto) Baso # (Auto) Immature Gran # (Auto) Sodium Potassium Chloride Carbon Dioxide Anion Gap BUN Creatinine Est Cr Clr Drug Dosing Est GFR ( Amer) Est GFR (Non-Af Amer) BUN/Creatinine Ratio Glucose Calcium Total Bilirubin AST ALT Alkaline Phosphatase Total Protein Albumin Globulin Albumin/Globulin Ratio TSH Urine Color Urine Appearance Urine pH Ur Specific Adams Urine Protein Urine Glucose (UA) Urine Ketones Urine Blood Urine Nitrite Urine Bilirubin Urine Urobilinogen Ur Leukocyte Esterase Urine Test Salicylates Urine Opiates Screen Ur Methadone, Qual Acetaminophen Urine Barbiturates Ur Phencyclidine (PCP) U Amphetamin/Meth Scrn MDMA (Ecstasy) Screen U Benzodiazepines Scrn Ur Cocaine Metabolite U Marijuana (THC) Screen U Marijuana THC Carboxy Drug Screen Comment Ethyl Alcohol mg/dL < 3.0 COVID-19 Eval Order CovFluRsv at [facility] SARS-CoV-2 (PCR) NEGATIVE Influenza Type A (PCR) Negative Influenza Type B (PCR) Negative RSV (RT-PCR) Negative 12/18/20 12/18/20 12/18/20 20:00 20:00 20:00 WBC RBC Hgb Hct MCV MCH MCHC RDW Std Deviation RDW Coeff of Rosa Plt Count MPV Immature Gran % (Auto) Neut % (Auto) Lymph % (Auto) [place] % (Auto) Eos % (Auto) Baso % (Auto) Neut # (Auto) Lymph # (Auto) [place] # (Auto) Eos # (Auto) Baso # (Auto) Immature Gran # (Auto) Sodium Potassium Chloride Carbon Dioxide Anion Gap BUN Creatinine Est Cr Clr Drug Dosing Est GFR ( Amer) Est GFR (Non-Af Amer) BUN/Creatinine Ratio Glucose Calcium Total Bilirubin AST ALT Alkaline Phosphatase Total Protein Albumin Globulin Albumin/Globulin Ratio TSH Urine Color Yellow Urine Appearance Clear Urine pH 7.5 Ur Specific Adams 1.009 Urine Protein Negative Urine Glucose (UA) Negative Urine Ketones Negative Urine Blood Negative Urine Nitrite Negative Urine Bilirubin Negative Urine Urobilinogen Negative Ur Leukocyte Esterase Negative Urine Test Negative Salicylates Urine Opiates Screen Neg Ur Methadone, Qual Neg Acetaminophen Urine Barbiturates Neg Ur Phencyclidine (PCP) Neg U Amphetamin/Meth Scrn Neg MDMA (Ecstasy) Screen Neg U Benzodiazepines Scrn Neg Ur Cocaine Metabolite Neg U Marijuana (THC) Screen Pos H U Marijuana THC Carboxy Drug Screen Comment Ethyl Alcohol mg/dL COVID-19 Eval Order SARS-CoV-2 (PCR) Influenza Type A (PCR) Influenza Type B (PCR) RSV (RT-PCR) 12/18/20 20:00 WBC RBC Hgb Hct MCV MCH MCHC RDW Std Deviation RDW Coeff of Rosa Plt Count MPV Immature Gran % (Auto) Neut % (Auto) Lymph % (Auto) [place] % (Auto) Eos % (Auto) Baso % (Auto) Neut # (Auto) Lymph # (Auto) [place] # (Auto) Eos # (Auto) Baso # (Auto) Immature Gran # (Auto) Sodium Potassium Chloride Carbon Dioxide Anion Gap BUN Creatinine Est Cr Clr Drug Dosing Est GFR ( Amer) Est GFR (Non-Af Amer) BUN/Creatinine Ratio Glucose Calcium Total Bilirubin AST ALT Alkaline Phosphatase Total Protein Albumin Globulin Albumin/Globulin Ratio TSH Urine Color Urine Appearance Urine pH Ur Specific Adams Urine Protein Urine Glucose (UA) Urine Ketones Urine Blood Urine Nitrite Urine Bilirubin Urine Urobilinogen Ur Leukocyte Esterase Urine Test Salicylates Urine Opiates Screen Ur Methadone, Qual Acetaminophen Urine Barbiturates Ur Phencyclidine (PCP) U Amphetamin/Meth Scrn MDMA (Ecstasy) Screen U Benzodiazepines Scrn Ur Cocaine Metabolite U Marijuana (THC) Screen U Marijuana THC Carboxy [address] H Drug Screen Comment SEE NOTE Ethyl Alcohol mg/dL COVID-19 Eval Order SARS-CoV-2 (PCR) Influenza Type A (PCR) Influenza Type B (PCR) RSV (RT-PCR) Hospital Course (1) Depression: 12/19--The patient was admitted to the [facility] ([facility] mental health unit) on q15 min checks (behavioral with suicide precautions) for safety. The patient will participate in group, recreational, and milieu therapies and will be offered additional individual and family sessions as clinically appropriate. Risks/benefits/alternatives reviewed re: antidepressants for the treatment of depression and/or anxiety. Discussion included but was not limited to FDA warnings re: suicidality in adolescents and young adults. The patient wants to avoid antidepressant given past experience. 12/21 - Continue as above - patient reporting improvement in mood, denying SI today. - Positive family meeting with miguel yesterday - Awaiting confirmed appointments through [facility] for outpatient psychiatric treatment - Pt referred for coordination with [employer] post-discharge to assist with communication with the university (2) Social anxiety disorder: 12/19--with performance anxiety component. She agreed to a trial of Buspar 5 mg po BID to start (am and afternoon). Discussion included but was not limited to risks/benefits/alternative treatments. 12/20--increase Buspar to 10 mg BID. 12/21 - Continue buspirone at current dosage - Continue to encourage development of healthy and effective coping strategies Mental Health & Subst Abuse Tx Psychiatrist Name of Psychiatrist: [facility] Psych[facility]rist's Time of Appointment with Psychiatrist: Will be scheduled after your intake appt Psychiatric Appointment Comment: [phone] Therapist Name of Therapist: [facility] Therapist's Therapy Appointment Comment: [phone] Warehouse Order Selector Name of Warehouse Order Selector: [employer] Phone Number for Warehouse Order Selector: [phone] Case Management Appointment Comment: Will call you Post Discharge Appointments Primary Care Physician Name Of Family Doctor: [facility] Primary Care Time of Appointment with PCP: Please follow up as needed Provider Appointment Comment: [facility] Smoking Cessation Counseling Tobacco Cessation Medication Prescribed at Discharge: Offered & Prescribed Other #1: Name of Aftercare Appointment: Potential ADHD Testing: [facility] Phone Number of Aftercare Appointment: Aftercare Appointment Comment: [address], [place] [address] Contact Information Discharge Discharge [facility] [address] [facility] [place] [address] Discharge Plan Discharge Items Patient Disposition: Home - Self-Care Reason For Visit: MDD Discharge Diagnosis: - Major depressive disorder - Social anxiety disorder Condition on Discharge: Fair Activity: Resume your previous activity Non-emergency contact: Primary Care Provider, Psychiatrist and Therapist Call non-emergency contact if: you have any medication questions and your symptoms worsen Follow-up/Referrals: PCP,MOLLY [Primary Care Provider] - Diet: Regular Addtl Attending Provider Instructions: SPECIAL CARE INSTRUCTIONS: 1. Follow through with your scheduled aftercare appointments. If unable to keep an appointment, please call to reschedule. 2. Take your medication only as prescribed. Medication should not be changed or stopped without the approval of your doctor. In the event of worsening symptoms or concerns about side effects, contact your doctor immediately. 3. Utilize new healthy coping skills, anger management skills, and stress management skills learned during your hospitalization. Journal feelings and process them with a support person. Identify stressors or situations that may result in relapse, deterioration or inappropriate behaviors and develop a plan to deal with those issues. 4. If your coping skills are ineffective and you are in crisis, contact your outpatient providers for direction. If unable to reach your providers, please call the [facility] CRISIS LINE AT , go to the [facility] walk-in center at [address] [place] [address] [facility], or go to the closest Emergency Room. 5. Avoid alcohol and un-prescribed drugs. 6. You have been provided with the Mental Health Advance Directives Pamphlet for your review. AFTERCARE APPOINTMENTS: * Please call your insurance company prior to your scheduled appointment to confirm your aftercare providers are covered. Take your insurance information to your appointments. WHO TO CALL AND WHEN: Medical Emergencies: For questions or emergencies related to your hospital stay, please contact the Inpatient Behavioral Health Unit at [phone]. A livestock dealer is on-call 09/04 for the Behavioral Health Unit for emergencies At any time you feel your situation is an emergency, you may also call 911 immediately. Pending Studies at Discharge: No Stand-Alone Forms: [facility], Smoking Cessation Medications and DC Order Prescriptions: New buspirone 10 mg tablet 10 mg PO [id number] 30 Days Qty: 60 RF: 0 nicotine (polacrilex) [Nicorette] 2 mg Gum 2 mg MT PRN PRN (Reason: nicotine cravings) Qty: 100 RF: 0 No Action No Known Home Medications RF: 0 Discharge Orders: Discharge Order (Routine); Ordered 12/22/20 Ordered By: Liz Sawant Admission Data Admit Date/Time: 12/18/20 21:43 Attending Provider: Leny Renoit Provider: Leny Reno Primary Care Provider: PCP,NO Other Interventions: Discharge Summary Assessment (RN) Last Done: 12/22/20 15:29 PSY Interdisciplinary Discharge Planning Last Done: 12/22/20 15:22 Coding Level of Care Code 58036 D/C day mgmt > 30 min Diagnoses Depression F32.9 Depression Type: unspecified Social anxiety disorder F40.10
== END 2020-12-22 15:31 | disposition home or self-care (01) | DRG 881 ==
LOC: ED 19:23 → 3S 21:43

== ENCOUNTER 2021-10-12 15:20 | Inpatient (IN) ==
[2021-10-12 16:15] LABS: Mean Corpuscular Hgb Conc 34.2 g/dL (32-36); Mean Platelet Volume 9.5 fL (7.4-10.4); Platelet Count 349 K/uL (130-400)
[2021-10-12 16:32] LABS: Hematocrit (blood only) 45.3 % (37-47); Hemoglobin 15.5 g/dL (12.0-16.0); Mean Corpuscular Hemoglobin 31.7 pg (25-34); Mean Corpuscular Volume 92.6 fL (80-100); RDW Coefficient of Variation 12.2 % (11.5-14.5); Red Blood Count 4.89 M/uL (4.2-5.4)
[2021-10-12 16:33] LABS: Basophils # (auto) 0.05 K/uL (0-0.2); Basophils % (auto) 0.6 %; Eosinophils # (auto) 0.24 K/uL (0-0.5); Eosinophils % (auto) 3.1 %; Immature Granulocytes # (auto) 0.03 K/uL (0.00-0.02); Immature Granulocytes % (auto) 0.4 %; Lymphocytes # (auto) 1.88 K/uL (1.2-3.4); Lymphocytes % (auto) 24.1 %; Monocytes # (auto) 0.73 K/uL (0.11-0.59); Monocytes % (auto) 9.4 %; Neutrophils # (auto) 4.87 K/uL (1.4-6.5); Neutrophils % (auto) 62.4 %
[2021-10-12 16:43] LABS: Acetaminophen < 3 ug/ml (10-30); Albumin Globulin Ratio 1.7 (0.9-2); Albumin Level 4.7 gm/dl (3.4-5.0); BUN Creatinine Ratio 14.5 (10-20); Bilirubin,Total 0.7 mg/dl (0.2-1.0); Creatinine Clr Calc Pharmacy 146.9 ml/min; Est GFR (African American) 116.8 ml/min; Est GFR (Non-African American) 100.8 ml/min; Globulin 2.8 gm/dl (2.5-4.0); Potassium 4.2 mmol/L (3.5-5.1); Salicylate < 3.0 mg/dl (3.0-30); Total Protein 7.5 gm/dl (6.0-8.3)
[2021-10-12 17:05] LABS: Appearance Urine Clear (Clear); Bacteria Urine Automated 1+ (Negative); Bilirubin Urine Negative (Negative); Blood Urine Trace (Negative); Color Urine Yellow; Epithelial Cell Urine Auto >30 /lpf (0-5); Glucose Urine UA Negative (Negative); Ketones Urine Negative (Negative); Leukocyte Esterase Urine Negative (Negative); Nitrite Urine Negative (Negative); Protein Urine Negative (Negative); Specific Gravity Urine 1.025 (1.000-1.030); Urobilinogen Urine Negative (Negative); pH Urine 5.5 (4.5-7.5)
[2021-10-12 17:24] LABS: RBC Urine Automated 0-4 /hpf (0-4)
[2021-10-12 17:49] LABS: Amphetamines+Metham, Urine Neg (Neg); Barbiturates, Urine Neg (Neg); Benzodiazepine, Urine Neg (Neg); Cocaine, Urine Neg (Neg); MDMA (Ecstacy), Urine Neg (Neg); Methadone, Urine Neg (Neg); Opiate, Urine Neg (Neg); Phencyclidine, Urine Neg (Neg)
--- NOTE | 2021-10-12 17:56 | Emergency Department Note ---
Impression & Plan Mood disorder, Suicidal ideation ED Provider Note INFORMANT: Patient ED PROVIDER(S): Samuel Medina MD CHIEF COMPLAINT: Suicidal ideation PLAN: Disposition: Admitted Condition: Good Outpatient prescription management: none Referral: None MEDICAL DECISION MAKING: Patient presented because of suicidal ideation. She has a history of mental health issues. Blood work was performed after physical examination. Blood work and laboratory testing was unremarkable. Patient was evaluated by the ER psychiatric medical case worker. Patient was voluntary for admission. Consultation made with [facility]. The patient was evaluated in the ER. She was admitted for further management. Triage Nursing notes reviewed and agree them. Vital Signs: reviewed and remarkable for no significant abnormalities Differential diagnosis: Mood disorder, infection, hypoglycemia, electrolyte abnormalities, cardiac sources, intracerebral event, toxicologic, trauma, neurologic, as well as other pathologies. Diagnostics interpreted by me: ECG: none Cardiac Monitoring: none Imaging studies: Deferred HPI: The patient is a 21year old female who presents to the Emergency Room with complaints of suicidal ideation. This started over the last few weeks and is escalating. No homicidal ideation. Patient has a history of anxiety and depression. [facility] with BuSpar. She states this was helping quite a bit but then she ran out and did not have a refill. She was seeing an outpatient therapist but did not get along with that person. She has not had a new therapist assigned. She feels that the stress of the new semester is becoming overwhelming. She feels she needs inpatient admission. The patient also notes the following associated symptoms, upset stomach at times with her anxiety.. The patient has smoking marijuana for relieving factors. Current pain is rated as 0/10. Pt denies LOC, headache, fevers, chills, diaphoresis, visual changes, neck pain, chest pain, breathing difficulties, nausea, vomiting, current abdominal pain, back pain, melena, hematochezia, urinary symptoms, numbness, weakness, lymphadenopathy, rash, or other complaints. ROS: See above HPI for pertinent positives & negatives. A total of 10 systems reviewed and were otherwise negative. PAST MEDICAL HISTORY:See Below , anxiety, depression PAST SURGICAL HISTORY:See Below, FAMILY HISTORY:See Below SOCIAL HISTORY:See Below, [employer] student. Positive marijuana. HOME MEDICATIONS:See Below ALLERGIES:See Below VITALS:See Below PHYSICAL EXAMINATION: GENERAL: Awake, alert, anxious-appearing, in no distress HENT: Normocephalic, atraumatic. Oropharynx unremarkable. EYES: Normal conjunctiva. Sclera non-icteric. NECK: Inspection normal. Non-tender. Supple. No nuchal rigidity. FROM. No masses. RESPIRATORY: Clear to auscultation. No wheezes. No rales. Normal respiratory effort. CARDIAC: Normal rate. Normal rhythm. No murmurs. No rubs. Extremities warm and well perfused. Pulses equal. No JVD. GI: Soft, non-distended. No tenderness to palpation. No rebound or guarding. No masses. RECTAL: Deferred. MUSCULOSKELETAL: Atraumatic. Chest examination reveals no tenderness. The back is symmetrical on inspection without obvious abnormality. There is no CVA tenderness to palpation. No joint edema. LOWER EXTREMITIES: Calves are equal size bilaterally and non-tender. No edema. No discoloration. NEURO: Normal sensorium. No sensory or motor deficits noted. SKIN: No rash or jaundice noted. PSYCH: Mildly depressed mood. Positive SI. No HI. No hallucinations or delusions. Samuel Medina MD Past Med/Surg History Medical History Marijuana abuse Obesity (BMI 35.0-39.9 without comorbidity) Social History (Updated 12/18/20 @ 21:40 by Camelia Perez MD) Smoking Status: Current every day smoker Tobacco Type: E-cigarettes / Vaping Preferred Language: Mongolian Communication Ability: Effective Commodity Merchant Required: No Beliefs That Will Affect Care: None marital status: Life Partner Current Living Situation: Significant Other current occupational status: student Feels Safe at Home: Yes Assistive Devices: None Allergies Allergies Allergy/AdvReac Type Severity Reaction Status Date / Time No Known Allergies Allergy Verified 10/12/21 16:28 Home Meds Home Medications Medication Instructions Recorded Confirmed No Known Home Medications 12/18/20 10/12/21 Results & Data (ED) Vital Signs Vital Signs - 24 hr 10/12/21 15:22 Temperature 36.5 C Temperature Source Temporal Artery Scan Pulse Rate 103 H Respiratory Rate 18 Blood Pressure 141/73 H Blood Pressure Mean 95 Pulse Oximetry 98 Oxygen Delivery Method Room Air Sepsis Recent Fever Within 48 Hours No Sepsis New/Unexplained Change in Mental Status N/A Sepsis Action Taken by Nursing No Action Required Laboratory Data Result diagrams: 10/12/21 16:02 10/12/21 16:02 Lab Results 10/12/21 10/12/21 10/12/21 Range/Units 16:02 16:02 16:02 WBC 7.80 (4.8-10.8) K/uL RBC 4.89 (4.2-5.4) M/uL Hgb 15.5 (12.0-16.0) g/dL Hct 45.3 (37-47) % MCV 92.6 (80-100) fL MCH 31.7 (25-34) pg MCHC 34.2 (32-36) g/dL RDW Std Deviation 41.0 (36.4-46.3) fL RDW Coeff of Rosa 12.2 (11.5-14.5) % Plt Count 349 (130-400) K/uL MPV 9.5 (7.4-10.4) fL Immature Gran % (Auto) 0.4 % Neut % (Auto) 62.4 % Lymph % (Auto) 24.1 % [place] % (Auto) 9.4 % Eos % (Auto) 3.1 % Baso % (Auto) 0.6 % Neut # (Auto) 4.87 (1.4-6.5) K/uL Lymph # (Auto) 1.88 (1.2-3.4) K/uL [place] # (Auto) 0.73 H (0.11-0.59) K/uL Eos # (Auto) 0.24 (0-0.5) K/uL Baso # (Auto) 0.05 (0-0.2) K/uL Immature Gran # (Auto) 0.03 H (0.00-0.02) K/uL Sodium 139 (136-145) mmol/L Potassium 4.2 (3.5-5.1) mmol/L Chloride 105 (98-107) mmol/L Carbon Dioxide 28 (21-32) mmol/L Anion Gap 6 (3-11) BUN 12 (6-23) mg/dl Creatinine 0.83 (0.6-1.2) mg/dl Est Cr Clr Drug Dosing 146.9 ml/min Est GFR ( Amer) 116.8 ml/min Est GFR (Non-Af Amer) 100.8 ml/min BUN/Creatinine Ratio 14.5 (10-20) Glucose 94 (70-99(Fasting)) mg/dl Calcium 10.0 (8.5-10.1) mg/dl Total Bilirubin 0.7 (0.2-1.0) mg/dl AST 11 L (13-39) U/L ALT 11 (7-52) U/L Alkaline Phosphatase 45 (34-104) U/L Total Protein 7.5 (6.0-8.3) gm/dl Albumin 4.7 (3.4-5.0) gm/dl Globulin 2.8 (2.5-4.0) gm/dl Albumin/Globulin Ratio 1.7 (0.9-2) TSH 1.528 (0.300-4.500) uIu/ml HCG, Qual (Negative) Urine Color Urine Appearance (Clear) Urine pH (4.5-7.5) Ur Specific [place] (1.000-1.030) Urine Protein (Negative) Urine Glucose (UA) (Negative) Urine Ketones (Negative) Urine Blood (Negative) Urine Nitrite (Negative) Urine Bilirubin (Negative) Urine Urobilinogen (Negative) Ur Leukocyte Esterase (Negative) Urine WBC (Auto) (0-5) /hpf Urine RBC (Auto) (0-4) /hpf U Hyaline Cast (Auto) (0-5) /lpf U Epithel Cells (Auto) (0-5) /lpf Urine Bacteria (Auto) (Negative) Salicylates (3.0-30) mg/dl Urine Opiates Screen (Neg) Ur Methadone, Qual (Neg) Acetaminophen (10-30) ug/ml Urine Barbiturates (Neg) Ur Phencyclidine (PCP) (Neg) U Amphetamin/Meth Scrn (Neg) MDMA (Ecstasy) Screen (Neg) U Benzodiazepines Scrn (Neg) Ur Cocaine Metabolite (Neg) U Marijuana (THC) Screen (Neg) Ethyl Alcohol mg/dL (<10.0) mg/dl SARS-CoV-2, RNA, NAAT (NEGATIVE) 10/12/21 10/12/21 10/12/21 Range/Units 16:02 16:02 16:02 WBC (4.8-10.8) K/uL RBC (4.2-5.4) M/uL Hgb (12.0-16.0) g/dL Hct (37-47) % MCV (80-100) fL MCH (25-34) pg MCHC (32-36) g/dL RDW Std Deviation (36.4-46.3) fL RDW Coeff of Rosa (11.5-14.5) % Plt Count (130-400) K/uL MPV (7.4-10.4) fL Immature Gran % (Auto) % Neut % (Auto) % Lymph % (Auto) % [place] % (Auto) % Eos % (Auto) % Baso % (Auto) % Neut # (Auto) (1.4-6.5) K/uL Lymph # (Auto) (1.2-3.4) K/uL [place] # (Auto) (0.11-0.59) K/uL Eos # (Auto) (0-0.5) K/uL Baso # (Auto) (0-0.2) K/uL Immature Gran # (Auto) (0.00-0.02) K/uL Sodium (136-145) mmol/L Potassium (3.5-5.1) mmol/L Chloride (98-107) mmol/L Carbon Dioxide (21-32) mmol/L Anion Gap (3-11) BUN (6-23) mg/dl Creatinine (0.6-1.2) mg/dl Est Cr Clr Drug Dosing ml/min Est GFR ( Amer) ml/min Est GFR (Non-Af Amer) ml/min BUN/Creatinine Ratio (10-20) Glucose (70-99(Fasting)) mg/dl Calcium (8.5-10.1) mg/dl Total Bilirubin (0.2-1.0) mg/dl AST (13-39) U/L ALT (7-52) U/L Alkaline Phosphatase (34-104) U/L Total Protein (6.0-8.3) gm/dl Albumin (3.4-5.0) gm/dl Globulin (2.5-4.0) gm/dl Albumin/Globulin Ratio (0.9-2) TSH (0.300-4.500) uIu/ml HCG, Qual Negative (Negative) Urine Color Urine Appearance (Clear) Urine pH (4.5-7.5) Ur Specific [place] (1.000-1.030) Urine Protein (Negative) Urine Glucose (UA) (Negative) Urine Ketones (Negative) Urine Blood (Negative) Urine Nitrite (Negative) Urine Bilirubin (Negative) Urine Urobilinogen (Negative) Ur Leukocyte Esterase (Negative) Urine WBC (Auto) (0-5) /hpf Urine RBC (Auto) (0-4) /hpf U Hyaline Cast (Auto) (0-5) /lpf U Epithel Cells (Auto) (0-5) /lpf Urine Bacteria (Auto) (Negative) Salicylates < 3.0 L (3.0-30) mg/dl Urine Opiates Screen (Neg) Ur Methadone, Qual (Neg) Acetaminophen < 3 L (10-30) ug/ml Urine Barbiturates (Neg) Ur Phencyclidine (PCP) (Neg) U Amphetamin/Meth Scrn (Neg) MDMA (Ecstasy) Screen (Neg) U Benzodiazepines Scrn (Neg) Ur Cocaine Metabolite (Neg) U Marijuana (THC) Screen (Neg) Ethyl Alcohol mg/dL < 10.0 (<10.0) mg/dl SARS-CoV-2, RNA, NAAT (NEGATIVE) 10/12/21 10/12/21 10/12/21 Range/Units 16:50 16:50 17:00 WBC (4.8-10.8) K/uL RBC (4.2-5.4) M/uL Hgb (12.0-16.0) g/dL Hct (37-47) % MCV (80-100) fL MCH (25-34) pg MCHC (32-36) g/dL RDW Std Deviation (36.4-46.3) fL RDW Coeff of Rosa (11.5-14.5) % Plt Count (130-400) K/uL MPV (7.4-10.4) fL Immature Gran % (Auto) % Neut % (Auto) % Lymph % (Auto) % [place] % (Auto) % Eos % (Auto) % Baso % (Auto) % Neut # (Auto) (1.4-6.5) K/uL Lymph # (Auto) (1.2-3.4) K/uL [place] # (Auto) (0.11-0.59) K/uL Eos # (Auto) (0-0.5) K/uL Baso # (Auto) (0-0.2) K/uL Immature Gran # (Auto) (0.00-0.02) K/uL Sodium (136-145) mmol/L Potassium (3.5-5.1) mmol/L Chloride (98-107) mmol/L Carbon Dioxide (21-32) mmol/L Anion Gap (3-11) BUN (6-23) mg/dl Creatinine (0.6-1.2) mg/dl Est Cr Clr Drug Dosing ml/min Est GFR ( Amer) ml/min Est GFR (Non-Af Amer) ml/min BUN/Creatinine Ratio (10-20) Glucose (70-99(Fasting)) mg/dl Calcium (8.5-10.1) mg/dl Total Bilirubin (0.2-1.0) mg/dl AST (13-39) U/L ALT (7-52) U/L Alkaline Phosphatase (34-104) U/L Total Protein (6.0-8.3) gm/dl Albumin (3.4-5.0) gm/dl Globulin (2.5-4.0) gm/dl Albumin/Globulin Ratio (0.9-2) TSH (0.300-4.500) uIu/ml HCG, Qual (Negative) Urine Color Yellow Urine Appearance Clear (Clear) Urine pH 5.5 (4.5-7.5) Ur Specific [place] 1.025 (1.000-1.030) Urine Protein Negative (Negative) Urine Glucose (UA) Negative (Negative) Urine Ketones Negative (Negative) Urine Blood Trace H (Negative) Urine Nitrite Negative (Negative) Urine Bilirubin Negative (Negative) Urine Urobilinogen Negative (Negative) Ur Leukocyte Esterase Negative (Negative) Urine WBC (Auto) 1-5 (0-5) /hpf Urine RBC (Auto) 0-4 (0-4) /hpf U Hyaline Cast (Auto) 1-5 (0-5) /lpf U Epithel Cells (Auto) >30 H (0-5) /lpf Urine Bacteria (Auto) 1+ H (Negative) Salicylates (3.0-30) mg/dl Urine Opiates Screen Neg (Neg) Ur Methadone, Qual Neg (Neg) Acetaminophen (10-30) ug/ml Urine Barbiturates Neg (Neg) Ur Phencyclidine (PCP) Neg (Neg) U Amphetamin/Meth Scrn Neg (Neg) MDMA (Ecstasy) Screen Neg (Neg) U Benzodiazepines Scrn Neg (Neg) Ur Cocaine Metabolite Neg (Neg) U Marijuana (THC) Screen Pos H (Neg) Ethyl Alcohol mg/dL (<10.0) mg/dl SARS-CoV-2, RNA, NAAT NEGATIVE (NEGATIVE) Discharge Plan Visit Data Chief Complaint: Mental Health Evaluation Stated Complaint: MENTAL HEALTH, SUICIDAL THOUGHTS ED Provider: Samuel Medina Discharge Problem: Mood disorder, Suicidal ideation Patient Disposition: Admitted As Inpatient
[2021-10-12] MEDS ORDERED: hydrOXYzine HCl 25 MG TAB PO PRN (19:12)
[2021-10-12] MEDS ORDERED: BISMUTH SUBSALICYLATE LIQD 236 ML PO PRN (19:12)
[2021-10-12] MEDS ORDERED: MAGNESIUM HYDROXIDE SUSP 30 ML UDC PO PRN (19:12)
[2021-10-12] MEDS ORDERED: SODIUM CHLORIDE 0.65% NA SOLN 45 ML (OCEAN) PRN (19:12)
[2021-10-12] MEDS ORDERED: ALUMINUM/MAGNESIUM SUSP 30 ML UDC PO PRN (19:12)
[2021-10-12] MEDS ORDERED: ACETAMINOPHEN 325 MG TAB PO PRN (19:12)
[2021-10-12 19:36] LABS: Pregnancy Test, Serum Negative (Negative)
[2021-10-12] MEDS ORDERED: FLUARIX QUADRIVALENT 0.5 ML SYR IM ONE (21:02)
[2021-10-12] MEDS: hydrOXYzine HCl 25 MG TAB PO PRN (22:11)
[2021-10-12] MEDS: MELATONIN 3 MG TAB PO PRN (22:11)
--- NOTE | 2021-10-13 09:15 | History & Physical ---
Date of Service October 13, 2021 Impression / Recommendations Impression The patient is a 21 year old with a history of depression and anxiety who was admitted for worsening mood and SI with plan of overdosing. Diagnostically consistent with SABAS with panic attacks and agoraphobia, social anxiety disorder, MDD and PTSD. The patient is deemed unstable and requires psychiatric hospitalization for diagnostic clarification, safety and stabilization, medication management and development of further coping skills. Discussed treatment options in detail including therapy and medication. Reviewed benefits and risks of SSRIs including but not limited to GI symptoms, CHAVEZ, sexual side effects and counseled on black box warning of potential for emergence of or increased SI and need to let staff know should this occur or should they feel unsafe. Also discussed importance of seeking emergency care following discharge if this side effect occurs in the future. She consents to starting escitalopram for SABAS, MDD and PTSD. Reviewed that in the future Wellbutrin could be an adjunctive option for depression and if she develops sexual side effects once anxiety is better managed. Also re-reviewed buspar benefits and risks including but not limited to dizziness, serotonin syndrome, CHAVEZ. The patient's audit score use history suggests problematic substance use. Brief intervention was offered and accepted. Intervention was greater than 5 minutes in length and included assessing readiness to quit, advice on how to reduce or abstain and to set a specific goal for this hospitalization. harvest worker will also assist in anticipating barriers to reducing or abstaining from substance use and in problem-solving for solutions to those problems while arranging for referral to appropriate treatment. The patient is in action stage of making changes to alcohol use and contemplative stage for marijuana use with regards to transtheoretical model of change. The patient is advised to decrease consumption due to depressant effects and risk of interaction with prescription medications and effects on anxiety. The patient agreed to consider reducing marijuana use and to continue with her reduced use of alcohol and will be provided with recovery materials to continue to educate self on how to cope with their condition without using substances. (1) MDD (major depressive disorder), recurrent episode, severe: (2) Generalized anxiety disorder with panic attacks: (3) Panic disorder with agoraphobia and moderate panic attacks: (4) Suicidal ideation: (5) Social anxiety disorder: (6) Cannabis use disorder, moderate, dependence: 10/13/21: The patient was admitted to [facility] on q15 min checks (behavioral with suicide precautions) for safety. The patient will participate in group, recreational, and milieu therapies and will be offered additional individual and family sessions as clinically appropriate. -discussed option to use CBT panic service mechanic mobile alicia after discharge -start escitalopram 5mg qd -re-start buspar at 5mg TID -hydroxyzine 25 mg daily prn for panic attacks -melatonin 3mg qhs prn for insomnia Inventory Assets Strengths: supportive spouse, full-time student Needs: outpatient providers, medication initiation, coping skills Risk Factors Assessment Acute risk is high given SI with plan, major mood symptoms, hopelessness, and anxiety. : Yes Do You Have Access To A Gun?: No Health Problems: No Mental Health Diagnoses: Yes Substance Use Disorders: Yes Previous Attempt: No Family History of Suicide: No Previous Psychiatric Hospitalization: Yes Hopelessness: Yes Smoker: Yes Protective Factors Assessment Employed: Yes Stable Relationships: Yes Supportive Family: Yes Psychiatric History Identifying Data ANJALI QUINTANA is a 21-year-old woman who currently lives with her and is a [employer] student, has a history of MDD, social anxiety, and marijuana use disorder and a history of psychiatric hospitalization (once at [facility] in December 2020) and was admitted on 10/12/21 19:12 on a 201 voluntary commitment for worsening depression, anxiety and SI. Chief Complaint "My depression has gotten a lot worse and I'm feeling like I don't have much to live for if I drop out of school". History of Present Illness Megan presents for worsening depression, anxiety and SI which have worsened over the last few weeks in the context of multiple stressors. Anxiety is always there but when it gets bad then her mood is impacted. She feels like she's always struggled with mental health and that when things become too overwhelming, often without realizing it initially, she can become suicidal. Stressors have been school/academic challenges, uncertainty of what she would do if she couldn't get through school and how her worsening mood and guilt has negatively impacted her relationship with her . She describes depressive symptoms of hopelessness, helplessness, changes in sleep (sometimes excessive sleep and other nights insomnia), decreased mood, low motivation, anhedonia (no longer playing music for fun, no longer reading or drawing or shopping) and SI with thoughts of overdosing on pills which are occurring a few times a day. She tries to talk to herself as she's one of her friends to cope with the SI but lately when she's felt more depressed it's harder to do this. Anxiety is generalized and in social setting as has been life long. Mane, which was prescribed after her last admission, helped but she hasn't been able to get a prescription since the fall. She's having panic attacks daily and has significant somatic symptoms particularly GI distress. She's been having nightmares due to the anxiety. Anxiety has lead to her not leaving the house. She feels overwhelmed that if she goes to class she'll get called on and not know the answer or be criticized. She has panic attacks at least daily which last usually about 3 minutes. Worries about having a panic attack outside of the home and that she'd be negatively judged. PTSD symptoms can sometimes lead to panic attacks. Psychiatric ROS notable for PTSD sx (intrusive thoughts, hypervigilance, mood impact), no history of yannick, no hx psychosis, at times struggles with binge eating and in the past with purging (last time of purging was 2-3 years ago) but lately hasn't been eating as much due to somatic symptoms anxiety. Past Psychiatric History Current Psychiatric Diagnosis: Depression; anxiety Outpatient Services: no, referred to [facility] in [facility] past but didn't follow-up, recently filled out information for [facility] for psychiatry and therapy services Previous Psych Admissions: [facility] in December 2020 Do You Have Access To A Gun?: No History of Previous Suicide Attempt: No Describe Attempts in the Past: No prior suicide attempts Past Medication Trials: mane, took sertraline 50mg in January 2020 and it helped with her mood but she was drinking a lot of alcohol at the time and had sexual side effects Additional Notes: hx cutting in the past (but last ~2 years ago) Past Head Trauma/Neuro History History of Concussion/Seizure: No Allergies Allergy/AdvReac Type Severity Reaction Status Date / Time No Known Allergies Allergy Verified 10/12/21 16:28 Home Medications Medication Instructions Recorded Confirmed Type No Known Home Medications 12/18/20 10/12/21 History Family History Family History of: Anxiety (maternal) and Other-List under Comment Family Mental Health History Comment: ADHD-paternal Alcohol History Hx of Alcohol Use Over the Past 12 Months: Yes (occassional) AUDIT Total Score: 11 Last semester she was drinking a lot but she feels like her use has decreased since August 2021 because "I've replaced it with weed" now drinking only once per month (maybe 5 drinks over 2.5 hours on these occassions). Smoking Use Have You Smoked or Used Tobacco Products in the Last 30 Days: Yes tobacco type: e-cigarettes Smoking Status: Current every day smoker Smoking packs per day: 0.5 Substance History Hx of Prescription Med Misuse Over the Past 12 Months: No Hx of Over the Counter Med Misuse Over the Past 12 Months: No Hx of Inhalent Misuse Over the Past 12 Months: No Hx of Organic Substance Use Over the Past 12 Months: Yes (Marijuana - daily - seeking medical card) Hx of Illegal Substances/Street Drug Use Over Past 12 Months: No Problems as a Result of Past Substance Use: None Identified Vaping marijuana daily which she feels helps with her anxiety, she doesn't like that it can make her feel unmotivated and not care about things. Personal History Living Arrangements: Apartment (with ) Employment Status: Student ([employer] studying [employer]) Marital Status: Beliefs That Will Affect Care: None Current Legal Problems: No Hx Legal Problems: No Hx Traumatic Life Events: Yes Patient History Medical History (Updated 10/13/21 @ 11:57 by Tori Ag MD) Binge eating disorder Cannabis use disorder, moderate, dependence Generalized anxiety disorder with panic attacks Obesity (BMI 35.0-39.9 without comorbidity) Suicidal ideation Social History Smoking Status: Current every day smoker Tobacco Type: E-cigarettes / Vaping Preferred Language: Tajik Communication Ability: Effective Land Surveyor Required: No Beliefs That Will Affect Care: None marital status: Life Partner Current Living Situation: Significant Other current occupational status: student Feels Safe at Home: Yes Assistive Devices: None Review of Systems Review of Systems: All systems reviewed & are unremarkable except as noted in HPI & below (stomach hurts) Physical Exam Psychiatric: Orientation: alert Apperance: appropriately dressed and appropriately groomed Eye Contact: good eye contact Motor Behavior: no abnormal motor movements Speech: normal rate/rhythm/volume of speech Affect: + depressed affect and + anxious affect Mood: + depressed mood and + anxious mood Thought Process: goal directed thought process Thought Content: reality based without delusions Suicidal Thoughts: denies suicidal plan and denies suicidal intent; + reports suicidal thoughts (intermittent SI, last occurred this morning ) Homicidal Thoughts: denies homicidal thoughts Hallucinations: no auditory hallucinations and no visual hallucinations Cognition: recent memory grossly intact, remote memory grossly intact, attention grossly intact and language grossly intact Estimated Intelligence: consistent with education level Insight: + fair insight Judgement: + fair judgement Vital Signs (Past 24 Hours): Last Vital Signs Temp 36.7 C 10/13/21 06:00 Pulse 83 10/13/21 06:07 Resp 16 10/13/21 06:00 BP 138/86 10/13/21 06:07 Pulse Ox 97 10/12/21 20:05 Exam Statement: A physical exam was performed in the ED by Dr. Medina for the purposes of medical clearance. I accept that physical as correct and adequate for the purposes of the inpatient physical exam. Results & Data ([facility]) Laboratory Results Laboratory Results - last 24 hr 10/12/21 10/12/21 10/12/21 16:02 16:02 16:02 WBC 7.80 RBC 4.89 Hgb 15.5 Hct 45.3 MCV 92.6 MCH 31.7 MCHC 34.2 RDW Std Deviation 41.0 RDW Coeff of Rosa 12.2 Plt Count 349 MPV 9.5 Immature Gran % (Auto) 0.4 Neut % (Auto) 62.4 Lymph % (Auto) 24.1 [place] % (Auto) 9.4 Eos % (Auto) 3.1 Baso % (Auto) 0.6 Neut # (Auto) 4.87 Lymph # (Auto) 1.88 [place] # (Auto) 0.73 H Eos # (Auto) 0.24 Baso # (Auto) 0.05 Immature Gran # (Auto) 0.03 H Sodium 139 Potassium 4.2 Chloride 105 Carbon Dioxide 28 Anion Gap 6 BUN 12 Creatinine 0.83 Est Cr Clr Drug Dosing 146.9 Est GFR ( Amer) 116.8 Est GFR (Non-Af Amer) 100.8 BUN/Creatinine Ratio 14.5 Glucose 94 Calcium 10.0 Total Bilirubin 0.7 AST 11 L ALT 11 Alkaline Phosphatase 45 Total Protein 7.5 Albumin 4.7 Globulin 2.8 Albumin/Globulin Ratio 1.7 TSH 1.528 HCG, Qual Urine Color Urine Appearance Urine pH Ur Specific [place] Urine Protein Urine Glucose (UA) Urine Ketones Urine Blood Urine Nitrite Urine Bilirubin Urine Urobilinogen Ur Leukocyte Esterase Urine WBC (Auto) Urine RBC (Auto) U Hyaline Cast (Auto) U Epithel Cells (Auto) Urine Bacteria (Auto) Salicylates Urine Opiates Screen Ur Methadone, Qual Acetaminophen Urine Barbiturates Ur Phencyclidine (PCP) U Amphetamin/Meth Scrn MDMA (Ecstasy) Screen U Benzodiazepines Scrn Ur Cocaine Metabolite U Marijuana (THC) Screen U Marijuana THC Carboxy Drug Screen Comment Ethyl Alcohol mg/dL SARS-CoV-2, RNA, NAAT 10/12/21 10/12/21 10/12/21 16:02 16:02 16:02 WBC RBC Hgb Hct MCV MCH MCHC RDW Std Deviation RDW Coeff of Rosa Plt Count MPV Immature Gran % (Auto) Neut % (Auto) Lymph % (Auto) [place] % (Auto) Eos % (Auto) Baso % (Auto) Neut # (Auto) Lymph # (Auto) [place] # (Auto) Eos # (Auto) Baso # (Auto) Immature Gran # (Auto) Sodium Potassium Chloride Carbon Dioxide Anion Gap BUN Creatinine Est Cr Clr Drug Dosing Est GFR ( Amer) Est GFR (Non-Af Amer) BUN/Creatinine Ratio Glucose Calcium Total Bilirubin AST ALT Alkaline Phosphatase Total Protein Albumin Globulin Albumin/Globulin Ratio TSH HCG, Qual Negative Urine Color Urine Appearance Urine pH Ur Specific [place] Urine Protein Urine Glucose (UA) Urine Ketones Urine Blood Urine Nitrite Urine Bilirubin Urine Urobilinogen Ur Leukocyte Esterase Urine WBC (Auto) Urine RBC (Auto) U Hyaline Cast (Auto) U Epithel Cells (Auto) Urine Bacteria (Auto) Salicylates < 3.0 L Urine Opiates Screen Ur Methadone, Qual Acetaminophen < 3 L Urine Barbiturates Ur Phencyclidine (PCP) U Amphetamin/Meth Scrn MDMA (Ecstasy) Screen U Benzodiazepines Scrn Ur Cocaine Metabolite U Marijuana (THC) Screen U Marijuana THC Carboxy Drug Screen Comment Ethyl Alcohol mg/dL < 10.0 SARS-CoV-2, RNA, NAAT 10/12/21 10/12/21 10/12/21 16:50 16:50 16:50 WBC RBC Hgb Hct MCV MCH MCHC RDW Std Deviation RDW Coeff of Rosa Plt Count MPV Immature Gran % (Auto) Neut % (Auto) Lymph % (Auto) [place] % (Auto) Eos % (Auto) Baso % (Auto) Neut # (Auto) Lymph # (Auto) [place] # (Auto) Eos # (Auto) Baso # (Auto) Immature Gran # (Auto) Sodium Potassium Chloride Carbon Dioxide Anion Gap BUN Creatinine Est Cr Clr Drug Dosing Est GFR ( Amer) Est GFR (Non-Af Amer) BUN/Creatinine Ratio Glucose Calcium Total Bilirubin AST ALT Alkaline Phosphatase Total Protein Albumin Globulin Albumin/Globulin Ratio TSH HCG, Qual Urine Color Yellow Urine Appearance Clear Urine pH 5.5 Ur Specific [place] 1.025 Urine Protein Negative Urine Glucose (UA) Negative Urine Ketones Negative Urine Blood Trace H Urine Nitrite Negative Urine Bilirubin Negative Urine Urobilinogen Negative Ur Leukocyte Esterase Negative Urine WBC (Auto) 1-5 Urine RBC (Auto) 0-4 U Hyaline Cast (Auto) 1-5 U Epithel Cells (Auto) >30 H Urine Bacteria (Auto) 1+ H Salicylates Urine Opiates Screen Neg Ur Methadone, Qual Neg Acetaminophen Urine Barbiturates Neg Ur Phencyclidine (PCP) Neg U Amphetamin/Meth Scrn Neg MDMA (Ecstasy) Screen Neg U Benzodiazepines Scrn Neg Ur Cocaine Metabolite Neg U Marijuana (THC) Screen Pos H U Marijuana THC Carboxy Pending Drug Screen Comment Pending Ethyl Alcohol mg/dL SARS-CoV-2, RNA, NAAT 10/12/21 17:00 WBC RBC Hgb Hct MCV MCH MCHC RDW Std Deviation RDW Coeff of Rosa Plt Count MPV Immature Gran % (Auto) Neut % (Auto) Lymph % (Auto) [place] % (Auto) Eos % (Auto) Baso % (Auto) Neut # (Auto) Lymph # (Auto) [place] # (Auto) Eos # (Auto) Baso # (Auto) Immature Gran # (Auto) Sodium Potassium Chloride Carbon Dioxide Anion Gap BUN Creatinine Est Cr Clr Drug Dosing Est GFR ( Amer) Est GFR (Non-Af Amer) BUN/Creatinine Ratio Glucose Calcium Total Bilirubin AST ALT Alkaline Phosphatase Total Protein Albumin Globulin Albumin/Globulin Ratio TSH HCG, Qual Urine Color Urine Appearance Urine pH Ur Specific [place] Urine Protein Urine Glucose (UA) Urine Ketones Urine Blood Urine Nitrite Urine Bilirubin Urine Urobilinogen Ur Leukocyte Esterase Urine WBC (Auto) Urine RBC (Auto) U Hyaline Cast (Auto) U Epithel Cells (Auto) Urine Bacteria (Auto) Salicylates Urine Opiates Screen Ur Methadone, Qual Acetaminophen Urine Barbiturates Ur Phencyclidine (PCP) U Amphetamin/Meth Scrn MDMA (Ecstasy) Screen U Benzodiazepines Scrn Ur Cocaine Metabolite U Marijuana (THC) Screen U Marijuana THC Carboxy Drug Screen Comment Ethyl Alcohol mg/dL SARS-CoV-2, RNA, NAAT NEGATIVE Current Inpatient Medications Current Inpatient Medications: Current Inpatient Medications Acetaminophen (Acetaminophen 325 Mg Tab) 650 mg PO Q4H PRN PRN Reason: Headache or Minor Fever Stop: 11/11/21 19:11 Al Hydrox/Mg Hydrox/Simethicone (Aluminum/Magnesium Susp 30 Ml Udc) 30 ml PO Q4H PRN PRN Reason: GI Upset Stop: 11/11/21 19:11 Bismuth Subsalicylate (Bismuth Subsalicylate Liqd 236 Ml) 15 ml PO PRN PRN PRN Reason: Loose Stool Stop: 11/11/21 19:11 Hydroxyzine HCl (Hydroxyzine Hcl 25 Mg Tab) 50 mg PO HSZ PRN PRN Reason: Insomnia Stop: 11/11/21 19:11 Last Admin: 10/12/21 22:11 Dose: 50 mg Documented by: Hydroxyzine HCl (Hydroxyzine Hcl 25 Mg Tab) 25 mg PO Q4H PRN PRN Reason: Anxiety Stop: 11/11/21 19:11 Magnesium Hydroxide (Magnesium Hydroxide Susp 30 Ml Udc) 30 ml PO DAILY PRN PRN Reason: Constipation Stop: 11/11/21 19:11 Melatonin (Melatonin 3 Mg Tab) 3 mg PO HS PRN PRN Reason: Sleep Stop: 11/11/21 19:18 Last Admin: 10/12/21 22:11 Dose: 3 mg Documented by: Sodium Chloride (Sodium Chloride 0.65% Na Soln 45 Ml ([place])) 1 - 2 sprays NA PRN PRN PRN Reason: Nasal Dryness/Congestion Stop: 11/11/21 19:11
[2021-10-13] MEDS: ESCITALOPRAM OXALATE 10 MG TAB PO SCH (13:05)
[2021-10-13] MEDS: busPIRone 5 MG TAB PO SCH ×2 (13:05→21:02)
[2021-10-13] MEDS: MELATONIN 3 MG TAB PO PRN (22:05)
[2021-10-13] MEDS: hydrOXYzine HCl 25 MG TAB PO PRN (22:43)
[2021-10-14] MEDS: busPIRone 5 MG TAB PO SCH ×2 (08:44→13:11)
[2021-10-14] MEDS: ESCITALOPRAM OXALATE 10 MG TAB PO SCH (08:44)
--- NOTE | 2021-10-14 12:41 | Discharge Summary ---
Date of Service October 14, 2021 History of Present Illness Megan presents for worsening depression, anxiety and SI which have worsened over the last few weeks in the context of multiple stressors. Anxiety is always there but when it gets bad then her mood is impacted. She feels like she's always struggled with mental health and that when things become too overwhelming, often without realizing it initially, she can become suicidal. Stressors have been school/academic challenges, uncertainty of what she would do if she couldn't get through school and how her worsening mood and guilt has negatively impacted her relationship with her . She describes depressive symptoms of hopelessness, helplessness, changes in sleep (sometimes excessive sleep and other nights insomnia), decreased mood, low motivation, anhedonia (no longer playing music for fun, no longer reading or drawing or shopping) and SI with thoughts of overdosing on pills which are occurring a few times a day. She tries to talk to herself as she's one of her friends to cope with the SI but lately when she's felt more depressed it's harder to do this. Anxiety is generalized and in social setting as has been life long. Buspar, which was prescribed after her last admission, helped but she hasn't been able to get a prescription since the fall. She's having panic attacks daily and has significant somatic symptoms particularly GI distress. She's been having nightmares due to the anxiety. Anxiety has lead to her not leaving the house. She feels overwhelmed that if she goes to class she'll get called on and not know the answer or be criticized. She has panic attacks at least daily which last usually about 3 minutes. Worries about having a panic attack outside of the home and that she'd be negatively judged. PTSD symptoms can sometimes lead to panic attacks. Psychiatric ROS notable for PTSD sx (intrusive thoughts, hypervigilance, mood impact), no history of yannick, no hx psychosis, at times struggles with binge eating and in the past with purging (last time of purging was 2-3 years ago) but lately hasn't been eating as much due to somatic symptoms anxiety. Physical Exam Vital Signs (Past 24 Hours) Last Vital Signs Temp 36.6 C 10/14/21 06:19 Pulse 67 10/14/21 06:20 Resp 16 10/14/21 06:19 BP 112/75 10/14/21 06:20 Pulse Ox 97 10/12/21 20:05 See admission H&P and DOD summary. Principal Diagnosis Major Depressive Disorder, Generalized anxiety disorder with panic attacks and agoraphobia Psychiatric Data See daily stay summary. In short, patient was engaged with the social/therapeutic milieu of the unit, safety was maintained and the patient was cooperative with care. Medication changes included initiation of buspar 5mg TID, escitalopram 5mg qd and hydroxyzine 25mg daily prn for panic attacks they tolerated this well. Buspirone can be further titrated over the coming weeks to address anxiety. Discussed with Megan that she can increase escitalopram to 10mg daily in one week if she continues to tolerate it without any side effects. Discussed coping skills for panic attacks and mood symptoms. Recommended option to try panic plant maintenance mechanic mobile CBT alicia for panic attacks as well as reviewed mobile safety plan alicia option. A family session was held and safety plan was completed prior to discharge. She showed a pretty rapid turn around in terms of improvement in her mood with starting medication and talking with unit counselors and attending groups. She had no SI for the 24 hours prior to discharge. She and her both agreed with having her return home and she has follow-up set up for psychiatry and will be contacted regarding a therapy intake appointment for [place]. Did motivational interviewing regarding substances use and goals of reducing use. Day of Discharge Assessment Today the patient voices readiness for discharge. They note improvement in mood and anxiety. They deny thoughts of harm to self or others. Thoughts are organized and they are clinically improved from admission. There is no evidence of psychosis. They improved in the hospital with support and medication adjustments. They agree to take medications as prescribed and keep follow-up appointments. At the time of the discharge they are deemed to be stable and appropriate for outpatient level of care. They are not deemed to be at imminent risk of harm to self or others. They are aware of emergency and crisis services. Knows to call 911 or go to nearest emergency care center if in a crisis which cannot be handled as an outpatient. Transition of Care Transition Of Care Record: was reviewed with the patient Advance Directives Advance Directives Information Provided: Yes Advance Directives: No Mental Health Advance Directive: No Advance Directives on File: No Living Will: No Power of Web Sizer: No Advance Directives Reason:: Declines as Mental Health Visit. Risk Factors Assessment : Yes Do You Have Access To A Gun?: No Health Problems: No Mental Health Diagnoses: Yes Substance Use Disorders: Yes Previous Attempt: No Family History of Suicide: No Previous Psychiatric Hospitalization: Yes Hopelessness: Yes Smoker: Yes Protective Factors Assessment Employed: Yes Stable Relationships: Yes Supportive Family: Yes Discharge Data Lab Results 10/12/21 10/12/21 10/12/21 16:02 16:02 16:02 WBC 7.80 RBC 4.89 Hgb 15.5 Hct 45.3 MCV 92.6 MCH 31.7 MCHC 34.2 RDW Std Deviation 41.0 RDW Coeff of Rosa 12.2 Plt Count 349 MPV 9.5 Immature Gran % (Auto) 0.4 Neut % (Auto) 62.4 Lymph % (Auto) 24.1 Jenkins % (Auto) 9.4 Eos % (Auto) 3.1 Baso % (Auto) 0.6 Neut # (Auto) 4.87 Lymph # (Auto) 1.88 Jenkins # (Auto) 0.73 H Eos # (Auto) 0.24 Baso # (Auto) 0.05 Immature Gran # (Auto) 0.03 H Sodium 139 Potassium 4.2 Chloride 105 Carbon Dioxide 28 Anion Gap 6 BUN 12 Creatinine 0.83 Est Cr Clr Drug Dosing 146.9 Est GFR ( Amer) 116.8 Est GFR (Non-Af Amer) 100.8 BUN/Creatinine Ratio 14.5 Glucose 94 Calcium 10.0 Total Bilirubin 0.7 AST 11 L ALT 11 Alkaline Phosphatase 45 Total Protein 7.5 Albumin 4.7 Globulin 2.8 Albumin/Globulin Ratio 1.7 TSH 1.528 HCG, Qual Urine Color Urine Appearance Urine pH Ur Specific [place] Urine Protein Urine Glucose (UA) Urine Ketones Urine Blood Urine Nitrite Urine Bilirubin Urine Urobilinogen Ur Leukocyte Esterase Urine WBC (Auto) Urine RBC (Auto) U Hyaline Cast (Auto) U Epithel Cells (Auto) Urine Bacteria (Auto) Salicylates Urine Opiates Screen Ur Methadone, Qual Acetaminophen Urine Barbiturates Ur Phencyclidine (PCP) U Amphetamin/Meth Scrn MDMA (Ecstasy) Screen U Benzodiazepines Scrn Ur Cocaine Metabolite U Marijuana (THC) Screen Ethyl Alcohol mg/dL SARS-CoV-2, RNA, NAAT 10/12/21 10/12/21 10/12/21 16:02 16:02 16:02 WBC RBC Hgb Hct MCV MCH MCHC RDW Std Deviation RDW Coeff of Rosa Plt Count MPV Immature Gran % (Auto) Neut % (Auto) Lymph % (Auto) Jenkins % (Auto) Eos % (Auto) Baso % (Auto) Neut # (Auto) Lymph # (Auto) Jenkins # (Auto) Eos # (Auto) Baso # (Auto) Immature Gran # (Auto) Sodium Potassium Chloride Carbon Dioxide Anion Gap BUN Creatinine Est Cr Clr Drug Dosing Est GFR ( Amer) Est GFR (Non-Af Amer) BUN/Creatinine Ratio Glucose Calcium Total Bilirubin AST ALT Alkaline Phosphatase Total Protein Albumin Globulin Albumin/Globulin Ratio TSH HCG, Qual Negative Urine Color Urine Appearance Urine pH Ur Specific [place] Urine Protein Urine Glucose (UA) Urine Ketones Urine Blood Urine Nitrite Urine Bilirubin Urine Urobilinogen Ur Leukocyte Esterase Urine WBC (Auto) Urine RBC (Auto) U Hyaline Cast (Auto) U Epithel Cells (Auto) Urine Bacteria (Auto) Salicylates < 3.0 L Urine Opiates Screen Ur Methadone, Qual Acetaminophen < 3 L Urine Barbiturates Ur Phencyclidine (PCP) U Amphetamin/Meth Scrn MDMA (Ecstasy) Screen U Benzodiazepines Scrn Ur Cocaine Metabolite U Marijuana (THC) Screen Ethyl Alcohol mg/dL < 10.0 SARS-CoV-2, RNA, NAAT 10/12/21 10/12/21 10/12/21 16:50 16:50 17:00 WBC RBC Hgb Hct MCV MCH MCHC RDW Std Deviation RDW Coeff of Rosa Plt Count MPV Immature Gran % (Auto) Neut % (Auto) Lymph % (Auto) Jenkins % (Auto) Eos % (Auto) Baso % (Auto) Neut # (Auto) Lymph # (Auto) Jenkins # (Auto) Eos # (Auto) Baso # (Auto) Immature Gran # (Auto) Sodium Potassium Chloride Carbon Dioxide Anion Gap BUN Creatinine Est Cr Clr Drug Dosing Est GFR ( Amer) Est GFR (Non-Af Amer) BUN/Creatinine Ratio Glucose Calcium Total Bilirubin AST ALT Alkaline Phosphatase Total Protein Albumin Globulin Albumin/Globulin Ratio TSH HCG, Qual Urine Color Yellow Urine Appearance Clear Urine pH 5.5 Ur Specific [place] 1.025 Urine Protein Negative Urine Glucose (UA) Negative Urine Ketones Negative Urine Blood Trace H Urine Nitrite Negative Urine Bilirubin Negative Urine Urobilinogen Negative Ur Leukocyte Esterase Negative Urine WBC (Auto) 1-5 Urine RBC (Auto) 0-4 U Hyaline Cast (Auto) 1-5 U Epithel Cells (Auto) >30 H Urine Bacteria (Auto) 1+ H Salicylates Urine Opiates Screen Neg Ur Methadone, Qual Neg Acetaminophen Urine Barbiturates Neg Ur Phencyclidine (PCP) Neg U Amphetamin/Meth Scrn Neg MDMA (Ecstasy) Screen Neg U Benzodiazepines Scrn Neg Ur Cocaine Metabolite Neg U Marijuana (THC) Screen Pos H Ethyl Alcohol mg/dL SARS-CoV-2, RNA, NAAT NEGATIVE Hospital Course (1) MDD (major depressive disorder), recurrent episode, severe: (2) Generalized anxiety disorder with panic attacks: (3) Panic disorder with agoraphobia and moderate panic attacks: (4) Suicidal ideation: (5) Social anxiety disorder: (6) Cannabis use disorder, moderate, dependence: 10/14/21: Tolerating medications without any side effects. Significant improvement in mood and anxiety. No SI. Future-oriented and eager to return home with her and her friend. She feels better able to manage her anxiety and panic attacks especially with having hydroxyzine available prn to help reduce likelihood of a panic attack occurring. Reviewed mobile apps to help with panic attacks and safety plan. Family meeting was held with her . She completed a safety plan and reviewed this with staff. 10/13/21: The patient was admitted to the [facility] ([facility] mental health unit) on q15 min checks (behavioral with suicide precautions) for safety. The patient will participate in group, recreational, and milieu therapies and will be offered additional individual and family sessions as clinically appropriate. -discussed option to use CBT panic plant maintenance mechanic mobile alicia after discharge -start escitalopram 5mg qd -re-start buspar at 5mg TID -hydroxyzine 25 mg daily prn for panic attacks -melatonin 3mg qhs prn for insomnia Mental Health & Subst Abuse Tx Psychiatrist Name of Psychiatrist: Leonor Trevino Psychiatrist's Date of Appointment with Psychiatrist: 11/03/21 Time of Appointment with Psychiatrist: 8:15am Psychiatric Appointment Comment: [address] [place], [place] Therapist Name of Therapist: Everton Valencia Therapist's Therapy Appointment Comment: [phone] [facility], [place] [address] Documentation Nurse Name of Documentation Nurse: None Post Discharge Appointments Primary Care Physician Name Of Family Doctor: PATITO Fabian Primary Care Date of Appointment with PCP: 11/01/21 Time of Appointment with PCP: 3:40pm Provider Appointment Comment: [facility] Contact Information Discharge Discharge Address: [address] [place] [address], [address], [place] [address] Discharge Plan Discharge Items Patient Disposition: Home - Self-Care Reason For Visit: MDD Discharge Diagnosis: Panic Disorder with agoraphobia Activity: Resume your previous activity Non-emergency contact: Primary Care Provider, Psychiatrist and Therapist Call non-emergency contact if: you have any medication questions and your symptoms worsen Follow-up/Referrals: Isabel,[facility] [Primary Care Provider] - Diet: Regular Addtl Attending Provider Instructions: SPECIAL CARE INSTRUCTIONS: 1. Follow through with your scheduled aftercare appointments. If unable to keep an appointment, please call to reschedule. 2. Take your medication only as prescribed. Medication should not be changed or stopped without the approval of your doctor. In the event of worsening symptoms or concerns about side effects, contact your doctor immediately. 3. Utilize new healthy coping skills, anger management skills, and stress management skills learned during your hospitalization. Journal feelings and process them with a support person. Identify stressors or situations that may result in relapse, deterioration or inappropriate behaviors and develop a plan to deal with those issues. 4. If your coping skills are ineffective and you are in crisis, contact your outpatient providers for direction. If unable to reach your providers, please call the [facility] CRISIS LINE AT , go to the [facility] walk-in center at [address], [place], or go to the closest Emergency Room. 5. Avoid alcohol and un-prescribed drugs. 6. You have been provided with the Mental Health Advance Directives Pamphlet for your review. 7. Your condition is stable for discharge to outpatient level of care, but recovery is an ongoing process. Ifthoughts to harm yourself or others return, follow the safety plan developed during your stay. Planning for a safe return home includes securing weapons. Our treatment team recommends weaponsbe removed from the home until your outpatient provider reassesses your progress. In rare cases where the items themselvescannot be removed, guns and ammunitionshould be secured separatelyand keys stored by a reliable personoutside of the home. If you were admitted on an involuntary commitment, the police or other legal authorities may be involved in this process. AFTERCARE APPOINTMENTS: * Please call your insurance company prior to your scheduled appointment to confirm your aftercare providers are covered. Take your insurance information to your appointments. WHO TO CALL AND WHEN: Medical Emergencies: For questions or emergencies related to your hospital stay, please contact the Inpatient Behavioral Health Unit at [phone]. A sheet metal duct installer apprentice is on-call 09/04 for the Behavioral Health Unit for emergencies At any time you feel your situation is an emergency, you may also call 911 immediately. Pending Studies at Discharge: No Stand-Alone Forms: My VersionOne, Smoking Cessation Medications and DC Order Prescriptions: New buspirone 5 mg Tablet 5 mg PO TID 30 Days Qty: 90 RF: 0 hydroxyzine HCl 25 mg Tablet 25 mg PO DAILY PRN (Reason: panic attack(s)) 30 Days Qty: 30 RF: 0 escitalopram oxalate 10 mg Tablet 5 mg PO QAM 30 Days Qty: 25 RF: 0 No Action No Known Home Medications RF: 0 Discharge Orders: Discharge Order (Routine); Ordered 10/14/21 Ordered By: Tori Sultana/Other Patient Handouts: Journaling for Mental Health, Depression: Tips to Help Yourself, Treating Agoraphobia Admission Data Admit Date/Time: 10/12/21 19:12 Attending Provider: Tori Ag Admit Provider: Tori Ag Primary Care Provider: Isabel,[facility] Other Interventions: PSY Interdisciplinary Discharge Planning Last Done: 10/14/21 12:12 Coding Level of Care Code 47640 D/C day mgmt > 30 min Diagnoses MDD (major depressive disorder), recurrent episode, severe F33.2 Generalized anxiety disorder with panic attacks F41.1; F41.0 Panic disorder with agoraphobia and moderate panic attacks F40.01 Suicidal ideation R45.851 Social anxiety disorder F40.10 Cannabis use disorder, moderate, dependence F12.20 Time Spent (min) 35
[2021-10-15 06:31] LABS: Marijuana Quant, GCMS Urine 667 ng/mL (<5)
== END 2021-10-14 13:12 | disposition home or self-care (01) | DRG 885 ==
LOC: ED 15:20 → 3S 19:12